=== PATIENT | male | born 1985 | race Caucasian/White ===

== ENCOUNTER 2023-08-19 15:39 | Observation (INO) | payer MEDICARE, MEDICAID, SELFPAY ==
[2023-08-19] VITALS (10 sets, daily range): BP systolic 110–158; BP diastolic 61–101; PULSE 67–100; RESP 14–18; TEMP 36.4–37.5; O2SAT 94–97; BMI 28.0; BMI 28.2
[2023-08-19] MEDS: Lactated Ringers 1,000 ML 15 ML IV (12:35)
--- NOTE | 2023-08-19 12:44 | EKG12_ITS ---
Test Reason : PRE OP Blood Pressure : / mmHG Vent. Rate : 084 BPM Atrial Rate : 084 BPM P-R Int : 156 ms QRS Dur : 098 ms QT Int : 382 ms P-R-T Axes : 035 039 -03 degrees QTc Int : 451 ms Normal sinus rhythm Inferior infarct , age undetermined Abnormal ECG No previous ECGs available Confirmed by MALCOLM SOTO, SMOOTH ([id number]), film editor supervisor LUCITA PARRA ([id number]) on 08/21/2023 9:15:32 AM Referred By: Virgil Barrientos Confirmed By:SMOOTH FOWLER MD
--- NOTE | 2023-08-19 14:00 | PROS_PTH ---
PATIENT: JACKIE ARRINGTON LOC: MS3 U#:[id number] AGE/SX: 37/M ROOM: [facility] [place] RE08/19/[address]: Dr. Virgil Barrientos MD : [id number] BED: 1 DIS: 08/20/2023 SPEC #: [id number] RECD: 08/19/23 18:33 STATUS: SABRINA VERA #: [id number] WENDI: 08/19/23 14:[address]: Virgil Barrientos DEPT: SURGICAL PATHOLOGY RECD BY: Janie Danielson ENTERED: 08/20/23 10:52 SP TYPE: TURP OTHR DR: Dr. Leonard Arechiga MD Tissues: Prostate, NOS Procedures: Surgery Specimen Level IV HEADER OPERATION: Transurethral resection of prostate with Olympus PRE-OP DIAGNOSIS: Urinary obstruction, incomplete bladder emptying TISSUE SUBMITTED: Prostate tissue MICROSCOPIC DIAGNOSIS Prostate, transurethral resection: Benign nodular hyperplasia. AM:megan 08/21/2023 MICROSCOPIC DESCRIPTION Slides are reviewed. GROSS DESCRIPTION Received is one container labeled with the patient's name and designated prostate tissue. The specimen consists of multiple irregular fragments of pink-dominguez, rubbery, soft tissue that in aggregate weigh 3.4 gm and measure in aggregate 5.0 x 5.0 x 0.2 cm. The entire specimen is submitted in three cassettes. / AM:megan 08/20/2023 TC:5 CPT: 46943
[2023-08-19] MEDS: Cefazolin 2 GM in 0.9% Normal Saline (100mL Bag) 100 ML IV (15:27)
--- NOTE | 2023-08-19 16:05 | HP.PCM_ITS ---
HPI - General General Date of Service: 08/19/23 HPI Narrative JACKIE ARRINGTON, is a 37 M who presents for a TURP he has a bladder neck obstruction and probably voiding dysfunction PENDING SALE TO [facility] Medical History Abrasion Cardiology follow-up encounter Cognitive developmental delay Gastric reflux Hypertension Non-smoker Prostate disease Shortness of breath on exertion Tourettes syndrome Judson syndrome Home Medications amlodipine 10 mg tablet 10 mg PO BID 08/17/23 [History Last Taken Unknown] clonidine HCl 0.1 mg tablet 0.1 mg PO BID 08/17/23 [History Last Taken Unknown] labetalol 200 mg tablet 200 mg PO BID 08/17/23 [History Last Taken Unknown] omeprazole 40 mg capsule,delayed release 40 mg PO QHS 08/17/23 [History Last Taken Unknown] polydextrose 2.5 gram-vitamin B complex chewable tablet (Fiber Gummies (with B- complex)) 2 tab PO DAILY 08/17/23 [History Last Taken Unknown] senna-docusate sodium capsule 1 cap PO QHS 08/17/23 [History Last Taken Unknown] sennosides 8.6 mg tablet (senna) 17.2 mg PO DAILY 08/17/23 [History Last Taken Unknown] ciprofloxacin HCl 500 mg tablet (Cipro) 500 mg PO BID #10 tabs 08/19/23 [Rx Last Taken Unknown] tamsulosin 0.4 mg capsule 0.4 mg PO BID 30 days #60 caps 08/19/23 [Rx Last Taken Unknown] Allergy/AdvReac Type Severity Reaction Status Date / Time vancomycin Allergy Intermediate Rash Verified 08/17/23 10:13 Surgical History History of ERCP History of Jason fundoplication Hx of cholecystectomy Hx of laparoscopy Social History Smoking Status: Never smoker Vital Signs Vital Signs Vital Signs: 08/19/23 12:35 08/19/23 12:35 Temperature 99.5 F H Temperature Source Temporal Pulse Rate 97 Respiratory Rate 18 Respiratory Pattern Normal Blood Pressure 149/87 H Blood Pressure Mean 107 Blood Pressure Source Monitor Blood Pressure Position Sitting Blood Pressure Location Left Arm Pulse Ox 97 Oxygen Delivery Method Room Air Weight Weight: 69.5 kg Body Mass Index (BMI) 28.0
--- NOTE | 2023-08-19 16:06 | DCINST_ITS ---
Discharge Instructions Diet Discharge Diet: No restrictions Activity Discharge Activity: Return to Normal Activity and May Not Drive (while taking narcotic pain medications.) Dressing / Incision Call your doctor if you observe: Fever of 101 or Higher Follow Up Care Please Follow Up With: Virgil Barrientos MD When: Call [phone] for an appointment Test Results: Test results from this visit will be discussed in further detail at your follow- up appointment, if applicable. Discharge Plan Admission Primary Reason for Your Visit: turp Attending Provider: Virgil Barrientos Primary Care Provider: Leonard Arechiga Discharge Orders/Prescriptions Prescriptions: New ciprofloxacin HCl [Cipro] 500 mg tablet 500 mg PO BID Qty: 10 0RF tamsulosin 0.4 mg capsule 0.4 mg PO BID 30 Days Qty: 60 11RF Continued omeprazole 40 mg capsule,delayed release(DR/EC) 40 mg PO QHS Patient Comments: TAKE 1 CAPSULE BY MOUTH ONCE DAILY sennosides [senna] 8.6 mg tablet 17.2 mg PO DAILY Patient Comments: TAKE 2 TABLETS BY MOUTH TWICE DAILY senna-docusate sodium Capsule 1 cap PO QHS clonidine HCl 0.1 mg tablet 0.1 mg PO BID Patient Comments: TAKE 1 TABLET BY MOUTH THREE TIMES DAILY amlodipine 10 mg tablet 10 mg PO BID labetalol 200 mg tablet 200 mg PO BID Fiber Gummies (with B-complex) 2.5 gram tablet,chewable 2 tab PO DAILY Referrals / Follow Up: Virgil Barrientos MD [Med Staff - Active Staff] - Leonard Arehciga MD [Primary Care Provider] - Disposition Disposition (needs filled in before D/C Order can be placed): Home, Self Care
--- NOTE | 2023-08-19 16:06 | OP.PCM_ITS ---
Report of Operation Date of Procedure: 08/19/23 Pre-Operative Diagnosis: BPH with obstruction high bladder neck and voiding dys function Post-Operative Diagnosis: The same Surgery/Procedure Performed:: Transurethral resection of prostate Description of Surgical Findings:: Patient was taken back to the operating room at the smooth induction of anesthesia he was placed in dorsolithotomy position went into the bladder with a 21 [place] rigid cystoscope the entire length of the urethra was normal the sphincter was normal the prostate was normal once I got inside the prostate he had a very high riding bladder neck had a really deflected beak down to get over the bladder neck is quite high causing obstruction he does have a stretched out weekend looking 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 probably from his high bladder riding neck that was causing obstruction I then switched over to the 24 [place] noncontinuous flow Olympus bipolar resectoscope I resected the bladder neck down to the floor I then resected the right lobe of the prostate left lobe of the prostate resected back down the sphincter did a flow test had a nice good open flow sphincter was intact got all chips out was sent off as a specimen and then cauterized the channel hemostasis was obtained and then I placed a 22 [place] catheter and continuous irrigation we will keep an overnight for irrigation and we will do a voiding trial tomorrow we will send him home francisca rrow with Flomax and some antibiotics.
--- NOTE | 2023-08-19 16:46 | SUR.PHASEI ---
PATIENT CAME TO PACU WITH AIRWAY OBSTRUCTION. OXYGEN SATURATIONS IN THE 60'S-70'S WITH NASAL CANNULA AND SIMPLE MASK, WELL , JAW THRUST. NASAL AIRWAY INSERTED BY JUANJOSE ANDERSON. PATIENT TOLERATED WELL. OXYGEN SATURATIONS IMPROVED. NASAL AIRWAY REMOVED WITH NO PROBLEMS ONCE PATIENT AROUSED AND ANSWERED QUESTIONS APPROPRIATELY. MAINTAINED OXYGEN SATURATION WITH NASAL CANNULA AFTER NASAL AIRWAY REMOVED.
[2023-08-19] MEDS: Ciprofloxacin 400 MG/200 ML BAG 200 MG IV (21:23)
[2023-08-19] MEDS: Senna/Docusate Sodium 1 Tablet PO (21:23)
[2023-08-19] MEDS: Pantoprazole Sodium 40 MG Tablet PO (21:23)
[2023-08-19] MEDS: amLODIPine 10 MG Tablet PO (21:23)
[2023-08-19] MEDS: cloNIDine HCl 0.1 MG Tablet PO (21:23)
[2023-08-19] MEDS: Labetalol 200 MG Tablet PO (21:23)
[2023-08-19] MEDS: Docusate Sodium 100 MG Capsule 200 MG PO (21:23)
[2023-08-19] MEDS: 0.9% Normal Saline (1000mL) 1,000 ML 75 ML IV (21:28)
[2023-08-20 01:52] VITALS: BP 144/80; PULSE 97; RESP 16; TEMP 37.1; O2SAT 95
[2023-08-20 05:48] VITALS: BP 146/92; PULSE 99; RESP 16; TEMP 37.2; O2SAT 98
--- NOTE | 2023-08-20 07:25 | PCM.PN.GU ---
Subjective Subjective Status post TURP for high riding bladder neck. We can remove the catheter today and patient go home Objective Data Objective Data Vital Signs: Vital Signs Temp Pulse Resp BP Pulse Ox O2 Del Method O2 Flow Rate 98.9 F 99 16 146/92 H 98 Room Air 2 08/20/23 05:48 08/20/23 05:48 08/20/23 05:48 08/20/23 05:48 08/20/23 05:48 08/20/23 05:48 08/19/23 17:52 Oxygen Flow Rate (L/min) 2 Oxygen Delivery Method Room Air Weight: 69.5 kg Body Mass Index (BMI) 28.2 Intake & Output: Intake and Output for Last 24 Hours 08/18/23 08/19/23 08/20/23 23:59 23:59 23:59 Intake Total 406.25 / 406.25 Output Total 4800 / 4800 Balance -4393.75 / -4393.75
[2023-08-20 07:46] VITALS: O2SAT 95
[2023-08-20 08:08] VITALS: BP 160/95; PULSE 105; RESP 16; TEMP 37.3; O2SAT 95
--- NOTE | 2023-08-20 09:25 | CASEMGMT ---
Pt. has order in for discharge. RN CM in to pt. room to discuss needs at discharge. Pt' mother is also present at the bedside and speaks for pt. as pt. is MRDD. Pt's mother denies having any needs and denies needing any further help upon discharge home. Pt.'s mother denies having any further questions/concerns at this time.
--- NOTE | 2023-08-20 10:27 | PHA.DC_ITS ---
Pharmacy [place] Med Reconciliation Pharmacy Service has performed discharge medication reconciliation for this patient. Patient left prior to discharge counselling opportunity The patient's discharge medication list was reviewed for discrepancies and discrepancies were resolved. Medications at Discharge Home Medications amlodipine 10 mg tablet 10 mg PO BID 08/17/23 clonidine HCl 0.1 mg tablet 0.1 mg PO BID 08/17/23 labetalol 200 mg tablet 200 mg PO BID 08/17/23 omeprazole 40 mg capsule,delayed release 40 mg PO QHS 08/17/23 polydextrose 2.5 gram-vitamin B complex chewable tablet (Fiber Gummies (with B- complex)) 2 tab PO DAILY 08/17/23 senna-docusate sodium capsule 1 cap PO QHS 08/17/23 sennosides 8.6 mg tablet (senna) 17.2 mg PO DAILY 08/17/23 ciprofloxacin HCl 500 mg tablet (Cipro) 500 mg PO BID #10 tabs 08/19/23 tamsulosin 0.4 mg capsule 0.4 mg PO BID 30 days #60 caps 08/19/23
== END 2023-08-20 10:40 | disposition home or self-care (01) ==
LOC: SDC 16:30 → MS3 16:30
PROVIDERS: Admitting Provider Urology; PCP Family Medicine; Referring Provider Urology; Visit Provider Urology
PROC: (CPT 52601; principal; 2023-08-19 13:50)
DX: N40.1 Benign prostatic hyperplasia with lower urinary tract symptoms (principal); N13.8 Other obstructive and reflux uropathy; R39.14 Feeling of incomplete bladder emptying; I10 Essential (primary) hypertension; Z79.899 Other long term (current) drug therapy; R33.8 Other retention of urine; K21.9 Gastro-esophageal reflux disease without esophagitis; R06.02 Shortness of breath; F81.9 Developmental disorder of scholastic skills, unspecified; Q93.82 Williams syndrome; F95.2 Tourette's disorder
CPT/HCPCS: 52601; 00914; 88305; 93005; 96361; 96365; 99221; J7030; J7120; G0378; J0744; J2405

== ENCOUNTER → 2024-01-01 | Outpatient (CLI) | payer MEDICARE, MEDICAID, SELFPAY ==
--- NOTE | 2024-01-01 07:47 | RAD_ITS ---
STUDY: X-RAY - ESOPHAGUS (BARIUM SWALLOW) WITH FLUOROSCOPY REASON FOR EXAM: Male, 38 years old. DYSPHAGIA. History of prior Jaden fundoplication. TECHNIQUE: 20 view(s) of the esophagus were obtained following swallowing of barium. FLUOROSCOPY TIME (if supplied): (36 seconds) minutes/seconds COMPARISON: None. FINDINGS: There is no demonstrated esophageal foreign body. Postsurgical changes are seen at the gastroesophageal junction. Mild degree of gastroesophageal reflux. The patient ingested a 12 mm tablet of barium without any issue. Normal visualized aortic arch and descending thoracic aorta. Normal visualized pulmonary parenchyma. Normal visualized osseous structures of the thorax. RAD/Esophagus Dual Contrast IMPRESSION: Postoperative changes seen at the gastroesophageal junction with a mild residual gastroesophageal reflux. Electronically Signed: Christopher Lynn MD at 10:47 EDT ,
== END | disposition home or self-care (01) ==
PROVIDERS: PCP Family Medicine; Referring Provider Internal Medicine Gastroenterology; Visit Provider Internal Medicine Gastroenterology
DX: R13.10 Dysphagia, unspecified (principal)
CPT/HCPCS: 74221

== ENCOUNTER 2024-01-09 17:41 | Emergency (ER) | payer MEDICARE, MEDICAID, SELFPAY ==
[2024-01-09 17:44] VITALS: BP 148/92; PULSE 125; RESP 18; TEMP 36.9; O2SAT 95; BMI 26.9
--- NOTE | 2024-01-09 18:19 | CT_ITS ---
STUDY: CT Abdomen And Pelvis W/ Contrast Injection 01/09/2024 7:53 PM REASON FOR EXAM: Male, 38 years old. ABDOMINAL PAIN abdominal pain TECHNIQUE: Transaxial images were obtained without oral contrast, and with IV 100mL Isovue-370 intravenous contrast. Individualized dose optimization techniques were used for this CT. COMPARISON: None FINDINGS: The visualized lung bases are unremarkable. The visualized portions of the heart are within normal limits. There is intrahepatic ductal dilation. There is dilation of the common bile duct. A common bile duct stone is not seen. The CBD diameter is 8 mm. There are surgical clips in the gallbladder fossa consistent with a prior cholecystectomy. Unremarkable spleen. Unremarkable pancreas. Unremarkable bilateral adrenal glands. Non obstructive 2 mm right renal parenchymal stones. Non obstructive 2 mm left renal parenchymal stones. There are hypodensities in the right kidney. These are consistent for cysts. No follow up required. There is a PEG tube in place. Unremarkable small intestine. Unremarkable colon. There is non-visualization of the appendix. There is a hiatal hernia. There are no acute findings of the abdominal aorta. Unremarkable inferior vena cava. Subcentimeter mesenteric lymph nodes. Urinary bladder wall has wall thickening. This can be related to a partially contractile state. However, a cystitis is not excluded. Urinalysis should be performed in an effort to exclude cystitis. There are prostatic calcifications. Urinary bladder diverticula. Unremarkable abdominal wall. Unremarkable osseous structures. CT/Abdomen/Pelvis W IV Cont ONLY IMPRESSION: (NOT LISTED IN ORDER OF SIGNIFICANCE) Dilated CBD. Urinary bladder wall has wall thickening. This can be related to a partially contractile state. However, a cystitis is not excluded. Urinalysis should be performed in an effort to exclude cystitis. Other findings as above. Electronically Signed: Socrates Hernández MD at 20:07 EDT ,
[2024-01-09] MEDS: LORazepam 2 MG/ML Syringe 1 MG IV (18:32)
[2024-01-09 18:38] LABS: Absolute Lymphocyte Count 0.92 X10^3/uL (0.83-4.51); Absolute Neutrophil Count 3.5 X10^3/uL (2.0-7.7); Basophil# 0.04 X10^3/uL; Basophil% 0.8 % (0-1); Eosinophil# 0.14 X10^3/uL; Eosinophils% 2.7 % (0-5); Hematocrit 44.7 % (40-54); Hemoglobin 15.9 g/dL (13.0-16.5); Lymphocyte # 0.92 X10^3/ul (0.83-4.51); Lymphocyte % 17.8 % (19-41); Mean Corp Hgb Conc 35.6 g/dL (32-36); Mean Corpuscular Hgb 30.8 pg (27.0-32.0); Mean Corpuscular Volume 86.5 fL (80-94); Mean Platelet Vol. 10.1 fl (6.2-12.0); Monocyte# 0.53 X10^3/uL; Monocyte% 10.2 % (0-10); NRBC Flagged by Analyzer 0 % (0-5); Neutrophil # 3.53 X10^3/uL (2.7-7.7); Neutrophil % 68.1 % (47-70); Platelet Count 302 K/mm3 (150-450); RBC Distribution Width CV 12.1 % (11.6-14.6); RBC Distribution Width SD 38.3 fl (35.1-43.9); Red Blood Count 5.17 M/mm3 (4.6-6.2); White Blood Count 5.2 K/mm3 (4.4-11.0)
--- NOTE | 2024-01-09 18:51 | ED.VIS.GI ---
HPI HPI - GI History of Present Illness Chief Complaint: Abd Pain Informant: patient and parent Narrative Narrative: 38-year-old male presenting to the emergency room with abdominal pain. Patient has a feeding tube for venting the abdomen due to gas. Has a history of gastric volvulus GERD and bile duct obstruction. Reportedly had the bile duct obstruction stented at [facility] about 2 years ago. Mom states that since August he has lost about 60 pounds. She was decreased p.o. intake and she has been trying to supplement with boost through the PEG tube. He has an appointment in about a week and a half with Dr. Hathaway from gastroenterology. As a preworkup for that appointment he underwent a barium swallow. This was read as mild gastroesophageal reflux. Mom states that today the pain seemed worse and he was choking and vomiting with eating. No reported diarrhea. [facility] Medical History Abrasion Cardiology follow-up encounter Cognitive developmental delay Gastric reflux Gastric volvulus Hypertension Non-smoker Prostate disease Shortness of breath on exertion Tourettes syndrome Urinary (tract) obstruction Judson syndrome Home Medications amlodipine 10 mg tablet 10 mg PO BID 08/17/23 [History Last Taken Unknown] clonidine HCl 0.1 mg tablet 0.1 mg PO BID 08/17/23 [History Last Taken Unknown] labetalol 200 mg tablet 200 mg PO BID 08/17/23 [History Last Taken Unknown] omeprazole 40 mg capsule,delayed release 40 mg PO QHS 08/17/23 [History Last Taken Unknown] polydextrose 2.5 gram-vitamin B complex chewable tablet (Fiber Gummies (with B-complex)) 2 tab PO DAILY 08/17/23 [History Last Taken Unknown] senna-docusate sodium capsule 1 cap PO QHS 08/17/23 [History Last Taken Unknown] ciprofloxacin HCl 500 mg tablet (Cipro) 500 mg PO BID #10 tabs 08/19/23 [Rx Last Taken Unknown] tamsulosin 0.4 mg capsule 0.4 mg PO BID 30 days #60 caps 08/19/23 [Rx Last Taken Unknown] citalopram 20 mg tablet 20 mg PO DAILY 12/03/23 [History Last Taken Unknown] hyoscyamine sulfate 0.125 mg tablet 0.125 mg PO BID-QID PRN 12/03/23 [History Last Taken Unknown] ondansetron 4 mg disintegrating tablet 4 mg PO Q8H 12/03/23 [History Last Taken Unknown] oxycodone 5 mg capsule 5 mg PO Q6H PRN 12/03/23 [History Last Taken Unknown] paroxetine HCl 20 mg tablet 20 mg PO DAILY 12/03/23 [History Last Taken Unknown] lorazepam 1 mg tablet (Ativan) 1 mg PO BID PRN nausea and vomiting #10 tabs 01/09/24 [Rx Last Taken Unknown] Allergy/AdvReac Type Severity Reaction Status Date / Time vancomycin Allergy Intermediate Rash Verified 01/09/24 17:43 Surgical History Gastrostomy status History of ERCP History of Jason fundoplication Hx of cholecystectomy Hx of laparoscopy Social History Smoking Status: Never smoker ROS ROS ED Constitutional Constitutional ED: Reports weight loss; Denies chills or fever(s) Eyes Eyes: Denies change in vision or diplopia ENT ENT ED: Denies ear pain, rhinorrhea or sore throat Cardiovascular Cardiovascular: Denies chest pain, orthopnea, palpitations or racing heartbeat Respiratory/Chest Respiratory/Chest: Denies cough, dyspnea or orthopnea Gastrointestinal Gastrointestinal: Reports abdominal pain and vomiting; Denies diarrhea or nausea Genitourinary Genitourinary ED: Denies dysuria, hematuria or urinary frequency Musculoskeletal Musculoskeletal: Denies arthralgias or myalgias Integumentary Denies abscess or rash Neurologic Neurologic: Denies headache(s) or weakness Psychiatric Psychiatric: Denies anxiety, depression, suicidal ideation or suicidal thoughts Endocrine Endocrinology: Denies polydipsia, polyphagia or polyuria Allergic/Immunologic Allergic/Immunologic ED: Denies mouth swelling, tongue swelling or urticaria EXAM Physical Exam Narrative Exam Narrative: Adult male sitting on the bed with his legs crossed rocking back and forth Const Vital Signs: 01/09/24 17:44 01/09/24 19:41 01/09/24 21:00 Temperature 98.4 F Temperature Source Temporal Pulse Rate 125 H 101 H 105 H Respiratory Rate 18 18 18 Blood Pressure 148/92 H 189/99 H 201/108 H Blood Pressure Mean 110 129 139 Pulse Ox 95 95 94 Oxygen Delivery Method Room Air Room Air Room Air 01/09/24 23:00 01/09/24 23:12 Temperature 98.4 F 98.4 F Temperature Source Oral Pulse Rate 95 95 Respiratory Rate 18 18 Blood Pressure 181/90 H 181/62 H Blood Pressure Mean 120 101 Pulse Ox 95 95 Oxygen Delivery Method Room Air Positive well nourished and well developed General Appearance ED: well developed HEENT Reports normocephalic, head/scalp atraumatic and moist mucous membranes Eyes PERRL and EOMs intact bilaterally Neck no lymphadenopathy, supple and no JVD Resp normal respiratory effort and clear to auscultation bilaterally Cardio regular rate, regular rhythm and no murmurs Rate: tachycardic GI normal to inspection, nondistended, normoactive bowel sounds and non-tender GI Narrative: PEG tube without obvious complications Palpation: soft Back/Spine no CVA tenderness and normal ROM Extremity normal to inspection General Extremety ED: Negative for edema General Extremity: Negative for edema Neuro oriented x3 and CN's II-XII intact bilaterally Sensorium / Orientation: alert Motor Exam: strength 5/5 throughout Psych mental status grossly normal Mood & Affect: Negative for depressed or tearful Skin no rashes or lesions noted and no wounds MDM MDM MDM Narrative Medical decision making narrative: Blood work appears very normal except for glucose of 125 chloride of 109. Lipase is normal. CT abdomen pelvis was obtained. Please see radiology read. When I look at the images I see dilated common bile duct and intrahepatic ducts. Appears to be a scalloped edge questionable ascites on the cephalad component of the liver. I spoke with Dr. Scott. Reviewed the images together and we reviewed his history. A milligram of Ativan substantially helped the patient has been resting comfortably. He was able to eat some Cheerios and milk without difficulty states his abdomen is not hurting. He is on omeprazole. There is a wide differential for what could be causing the patient's symptoms and he certainly needs a workup whether or not that needs to be done in the hospital is difficult to say. 1 possibility is that he could be having a ball-valve effect with his weight loss in the feeding tube. I do not have access to a tube that I think would be appropriate for him right now based on Dr. Scott's recommendation. He will probably need an MRI upper endoscopy. I spoke with mom about admission. Elton is Saturday night noncommittal to get an MRI tomorrow and most likely not an endoscopy. I do not know how he would do in a change in environment waiting in the hospital for that long. Using shared decision making we spoke through different possibilities. I will write for him to have some Ativan at home which mom states really helped him out. He is going to continue his home medications and we gave him his doses of blood pressure medicines that he is due. Mom send call Dr. Scott's office on Thursday to arrange earlier follow-up. In the meantime if the patient is not able to tolerate food or is worsening he can return to the emergency department. History & Record Review Discussion w/independent historian: Patient and Family Lab Data Attestation: I reviewed the patient's lab results. Labs: Laboratory Results - last 24 hr 01/09/24 17:55 WBC 5.2 RBC 5.17 Hgb 15.9 Hct 44.7 MCV 86.5 MCH 30.8 MCHC 35.6 RDW Std Deviation 38.3 RDW Coeff of Elisabet 12.1 Plt Count 302 MPV 10.1 Immature Gran % (Auto) 0.400 Neut % (Auto) 68.1 Lymph % (Auto) 17.8 L [place] % (Auto) 10.2 H Eos % (Auto) 2.7 Baso % (Auto) 0.8 Absolute Neuts (auto) 3.5 Absolute Lymphs (auto) 0.92 Nucleated RBC % 0 Sodium 142 Potassium 3.9 Chloride 109 H Carbon Dioxide 25.0 Anion Gap 8 BUN 17 Creatinine 1.02 Estim Creat Clear Calc 81.78 Est GFR (MDRD) Af Amer 104 Est GFR (MDRD) Non-Af 86 BUN/Creatinine Ratio 16.7 Glucose 125 H Calcium 9.3 Total Bilirubin 0.30 Direct Bilirubin 0.10 AST 13 L ALT 24 Alkaline Phosphatase 104 Total Protein 8.0 Albumin 4.3 Globulin 3.7 Lipase 31 Radiography Diagnostic Testing: Clinical Impression(s) from Imaging Studies Abdomen/Pelvis CT 01/09/24 18:19 IMPRESSION: (NOT LISTED IN ORDER OF SIGNIFICANCE) Dilated CBD. Urinary bladder wall has wall thickening. This can be related to a partially contractile state. However, a cystitis is not excluded. Urinalysis should be performed in an effort to exclude cystitis. Other findings as above. Electronically Signed: Socrates Hernández MD at 20:07 EDT , Management Discussion w/another healthcare provider: Braille Teacher (MABEL Scott) Discharge Plan Triage Chief Complaint: Abd Pain ED Provider: Rusty Palmer Dx/Rx/DC Orders Clinical Impression: Abdominal pain Instructions: Abdominal Pain Prescriptions: New lorazepam [Ativan] 1 mg tablet 1 mg PO BID PRN (Reason: nausea and vomiting) Qty: 10 0RF No Action citalopram 20 mg tablet 20 mg PO DAILY ondansetron 4 mg tablet,disintegrating 4 mg PO Q8H oxycodone 5 mg capsule 5 mg PO Q6H PRN paroxetine HCl 20 mg tablet 20 mg PO DAILY hyoscyamine sulfate 0.125 mg tablet 0.125 mg PO BID-QID PRN omeprazole 40 mg capsule,delayed release(DR/EC) 40 mg PO QHS Patient Comments: TAKE 1 CAPSULE BY MOUTH ONCE DAILY senna-docusate sodium Capsule 1 cap PO QHS clonidine HCl 0.1 mg tablet 0.1 mg PO BID Patient Comments: TAKE 1 TABLET BY MOUTH THREE TIMES DAILY amlodipine 10 mg tablet 10 mg PO BID labetalol 200 mg tablet 200 mg PO BID Fiber Gummies (with B-complex) 2.5 gram tablet,chewable 2 tab PO DAILY ciprofloxacin HCl [Cipro] 500 mg tablet 500 mg PO BID Qty: 10 0RF tamsulosin 0.4 mg capsule 0.4 mg PO BID 30 Days Qty: 60 11RF Primary Care Provider: Leonard Arechiga Referrals: Bradford Scott DO [Med Staff - Active Staff] - As soon as possible Leonard Arechiga MD [Primary Care Provider] - Disposition Disposition: Home, Self Care Discharge Date/Time: 01/09/24 23:14
[2024-01-09 18:59] LABS: AST(SGOT) 13 U/L (15-37); Alanine Aminotransfer ALT/SGPT 24 U/L (16-61); Albumin, Serum 4.3 g/dL (3.2-5.0); Alkaline Phosphatase 104 U/L (45-117); Anion Gap 8 (5-15); BUN 17 mg/dL (7-18); BUN/Creat Ratio 16.7 RATIO (10-20); Calcium,Total 9.3 mg/dL (8.5-10.1); Chloride 109 mmol/L (98-107); Creatinine, Serum 1.02 mg/dL (0.70-1.30); EST Glomerular Filtration Rate 86 mL/min (>60); Est Glom Filt Rate - Afr Amer 104 mL/min (>60); Estimated Creatinine Clearance 81.78 ml/min; Globulin 3.7 g/dL (2.2-4.2); Glucose 125 mg/dL (74-106); Potassium 3.9 mmol/L (3.5-5.1); Sodium Level 142 mmol/L (136-145)
[2024-01-09 19:00] LABS: Lipase 31 U/L (13-75)
[2024-01-09 19:41] VITALS: BP 189/99; PULSE 101; RESP 18; O2SAT 95
[2024-01-09 21:00] VITALS: BP 201/108; PULSE 105; RESP 18; O2SAT 94
[2024-01-09] MEDS: amLODIPine 10 MG Tablet PO (21:50)
[2024-01-09] MEDS: Labetalol 200 MG Tablet PO (21:50)
[2024-01-09] MEDS: cloNIDine HCl 0.1 MG Tablet PO (21:50)
[2024-01-09 23:00] VITALS: BP 181/90; PULSE 95; RESP 18; TEMP 36.9; O2SAT 95
[2024-01-09 23:12] VITALS: BP 181/62; PULSE 95; RESP 18; TEMP 36.9; O2SAT 95
== END 2024-01-09 23:14 | disposition home or self-care (01) ==
PROVIDERS: Emergency Provider Emergency Medicine; PCP Family Medicine; Visit Provider Emergency Medicine
DX: R10.9 Unspecified abdominal pain (principal); Z93.1 Gastrostomy status; I10 Essential (primary) hypertension; Z79.899 Other long term (current) drug therapy; K21.9 Gastro-esophageal reflux disease without esophagitis; Z90.49 Acquired absence of other specified parts of digestive tract
CPT/HCPCS: 99283; 74177; 80048; 80076; 83690; 85025; Q9967; A4216

== ENCOUNTER 2024-01-10 19:54 | Inpatient (IN) | payer MEDICARE, MEDICAID, SELFPAY ==
[2024-01-10 19:55] VITALS: BP 136/85; PULSE 100; RESP 18; TEMP 36.8; O2SAT 97; BMI 26.8
[2024-01-10] MEDS: LORazepam 2 MG/ML Syringe 1 MG IV (21:08)
[2024-01-10] MEDS: 0.9% Normal Saline (1000mL) 1,000 ML 150 ML IV (21:08)
--- NOTE | 2024-01-10 21:17 | EDS_ITS ---
HPI HPI - GI History of Present Illness Chief Complaint: Abd Pain Informant: patient and parent Narrative Narrative: 38-year-old male seen in the emergency room last night by myself with abdominal pain. Patient has a history of Judson syndrome. He has had prior common bile duct stenting at [facility]. He has a PEG tube. Patient underwent labs and CT scanning in the emergency department last night. Noted abnormal contour of the liver with dilated intrahepatic and common bile ducts. Possible ball-valve effect of the feeding tube. Had outpatient's barium swallow that showed mild GE junction reflux. Case was discussed last night with gastroenterology and using shared decision making decided to pursue a expedited outpatient workup however the patient had continued pain today with eating. No fever or diarrhea. We have given the patient some Ativan last night which seemed to help him relax to make him feel better. Mom gave some of this today without success. Mom presenting him to the emergency department tonight for admission for inpatient workup due to his inability to tolerate food and his persistent weight loss. [facility] Medical History Abrasion Cardiology follow-up encounter Cognitive developmental delay Gastric reflux Gastric volvulus Hypertension Non-smoker Prostate disease Shortness of breath on exertion Tourettes syndrome Urinary (tract) obstruction Judson syndrome Home Medications amlodipine 10 mg tablet 10 mg PO BID 08/17/23 [History Last Taken Unknown] clonidine HCl 0.1 mg tablet 0.1 mg PO BID 08/17/23 [History Last Taken Unknown] labetalol 200 mg tablet 200 mg PO BID 08/17/23 [History Last Taken Unknown] omeprazole 40 mg capsule,delayed release 40 mg PO QHS 08/17/23 [History Last Taken Unknown] polydextrose 2.5 gram-vitamin B complex chewable tablet (Fiber Gummies (with B-complex)) 2 tab PO DAILY 08/17/23 [History Last Taken Unknown] senna-docusate sodium capsule 1 cap PO QHS 08/17/23 [History Last Taken Unknown] ciprofloxacin HCl 500 mg tablet (Cipro) 500 mg PO BID #10 tabs 08/19/23 [Rx Last Taken Unknown] tamsulosin 0.4 mg capsule 0.4 mg PO BID 30 days #60 caps 08/19/23 [Rx Last Taken Unknown] citalopram 20 mg tablet 20 mg PO DAILY 12/03/23 [History Last Taken Unknown] hyoscyamine sulfate 0.125 mg tablet 0.125 mg PO BID-QID PRN 12/03/23 [History Last Taken Unknown] ondansetron 4 mg disintegrating tablet 4 mg PO Q8H 12/03/23 [History Last Taken Unknown] oxycodone 5 mg capsule 5 mg PO Q6H PRN 12/03/23 [History Last Taken Unknown] paroxetine HCl 20 mg tablet 20 mg PO DAILY 12/03/23 [History Last Taken Unknown] lorazepam 1 mg tablet (Ativan) 1 mg PO BID PRN nausea and vomiting #10 tabs 01/09/24 [Rx Last Taken Unknown] Allergy/AdvReac Type Severity Reaction Status Date / Time vancomycin Allergy Intermediate Rash Verified 01/10/24 19:56 Surgical History Gastrostomy status History of ERCP History of Jason fundoplication Hx of cholecystectomy Hx of laparoscopy Social History Smoking Status: Never smoker ROS ROS ED Constitutional Constitutional ED: Reports weight loss; Denies chills or fever(s) Eyes Eyes: Denies change in vision or diplopia ENT ENT ED: Denies ear pain, rhinorrhea or sore throat Cardiovascular Cardiovascular: Denies chest pain, orthopnea, palpitations or racing heartbeat Respiratory/Chest Respiratory/Chest: Denies cough, dyspnea or orthopnea Gastrointestinal Gastrointestinal: Reports abdominal pain and vomiting; Denies diarrhea or nausea Genitourinary Genitourinary ED: Denies dysuria, hematuria or urinary frequency Musculoskeletal Musculoskeletal: Denies arthralgias or myalgias Integumentary Denies abscess or rash Neurologic Neurologic: Denies headache(s) or weakness Psychiatric Psychiatric: Denies anxiety, depression, suicidal ideation or suicidal thoughts Endocrine Endocrinology: Denies polydipsia, polyphagia or polyuria Allergic/Immunologic Allergic/Immunologic ED: Denies mouth swelling, tongue swelling or urticaria EXAM Physical Exam Const Vital Signs: 01/10/24 19:55 Temperature 98.2 F Temperature Source Temporal Pulse Rate 100 Respiratory Rate 18 Blood Pressure 136/85 H Blood Pressure Mean 102 Pulse Ox 97 Oxygen Delivery Method Room Air Positive well nourished and well developed General Appearance ED: well developed HEENT Reports normocephalic, head/scalp atraumatic and moist mucous membranes Eyes PERRL and EOMs intact bilaterally Neck no lymphadenopathy, supple and no JVD Resp normal respiratory effort and clear to auscultation bilaterally Cardio regular rate, regular rhythm and no murmurs GI normal to inspection, nondistended, normoactive bowel sounds and non-tender GI Narrative: PEG tube in place Palpation: soft Back/Spine no CVA tenderness and normal ROM Extremity normal to inspection General Extremety ED: Negative for edema General Extremity: Negative for edema Neuro CN's II-XII intact bilaterally Neuro Narrative: Patient alert sitting in the bed rocking back and forth consistent with his history. Mom states that in her opinion he is having pain in his abdomen Sensorium / Orientation: alert Motor Exam: strength 5/5 throughout Psych Mood & Affect: tearful Skin no rashes or lesions noted and no wounds MDM MDM MDM Narrative Medical decision making narrative: Basic blood work remains unchanged from yesterday. He received a dose of Ativan and some IV fluids. I will speak with the hospitalist regarding admission for GI evaluation tomorrow. History & Record Review Discussion w/independent historian: Patient and Family Additional record(s) reviewed:: Prior ED visit and Prior labs Lab Data Attestation: I reviewed the patient's lab results. Labs: Laboratory Results - last 24 hr 01/10/24 21:10 WBC 8.5 RBC 4.81 Hgb 14.7 Hct 41.6 MCV 86.5 MCH 30.6 MCHC 35.3 RDW Std Deviation 38.3 RDW Coeff of Elisabet 12.0 Plt Count 267 MPV 9.4 Immature Gran % (Auto) 0.200 Neut % (Auto) 77.4 H Lymph % (Auto) 12.7 L [place] % (Auto) 7.3 Eos % (Auto) 1.8 Baso % (Auto) 0.6 Absolute Neuts (auto) 6.6 Absolute Lymphs (auto) 1.08 Nucleated RBC % 0 Sodium 141 Potassium 3.8 Chloride 107 Carbon Dioxide 28.0 Anion Gap 6 BUN 17 Creatinine 0.93 Estim Creat Clear Calc 89.52 Est GFR (MDRD) Af Amer 117 Est GFR (MDRD) Non-Af 97 BUN/Creatinine Ratio 18.4 Glucose 115 H Calcium 8.7 Total Bilirubin 0.40 Direct Bilirubin 0.12 AST 12 L ALT 22 Alkaline Phosphatase 81 Total Protein 7.0 Albumin 3.9 Globulin 3.1 Lipase 27 Discharge Plan Dx/Rx/DC Orders Clinical Impression: Mc syndrome, Abdominal pain Disposition Disposition: Acute Care Hospital [facility]
[2024-01-10 21:18] LABS: Absolute Lymphocyte Count 1.08 X10^3/uL (0.83-4.51); Absolute Neutrophil Count 6.6 X10^3/uL (2.0-7.7); Basophil# 0.05 X10^3/uL; Basophil% 0.6 % (0-1); Eosinophil# 0.15 X10^3/uL; Eosinophils% 1.8 % (0-5); Hematocrit 41.6 % (40-54); Hemoglobin 14.7 g/dL (13.0-16.5); Lymphocyte # 1.08 X10^3/ul (0.83-4.51); Lymphocyte % 12.7 % (19-41); Mean Corp Hgb Conc 35.3 g/dL (32-36); Mean Corpuscular Hgb 30.6 pg (27.0-32.0); Mean Corpuscular Volume 86.5 fL (80-94); Mean Platelet Vol. 9.4 fl (6.2-12.0); Monocyte# 0.62 X10^3/uL; Monocyte% 7.3 % (0-10); NRBC Flagged by Analyzer 0 % (0-5); Neutrophil % 77.4 % (47-70); Platelet Count 267 K/mm3 (150-450); RBC Distribution Width SD 38.3 fl (35.1-43.9); Red Blood Count 4.81 M/mm3 (4.6-6.2); White Blood Count 8.5 K/mm3 (4.4-11.0)
[2024-01-10 21:49] LABS: AST(SGOT) 12 U/L (15-37); Alanine Aminotransfer ALT/SGPT 22 U/L (16-61); Albumin, Serum 3.9 g/dL (3.2-5.0); Alkaline Phosphatase 81 U/L (45-117); Anion Gap 6 (5-15); BUN 17 mg/dL (7-18); BUN/Creat Ratio 18.4 RATIO (10-20); Bilirubin, Direct 0.12 mg/dL (0.00-0.30); Calcium,Total 8.7 mg/dL (8.5-10.1); Chloride 107 mmol/L (98-107); Creatinine, Serum 0.93 mg/dL (0.70-1.30); EST Glomerular Filtration Rate 97 mL/min (>60); Est Glom Filt Rate - Afr Amer 117 mL/min (>60); Estimated Creatinine Clearance 89.52 ml/min; Globulin 3.1 g/dL (2.2-4.2); Glucose 115 mg/dL (74-106); Lipase 27 U/L (13-75); Potassium 3.8 mmol/L (3.5-5.1); Sodium Level 141 mmol/L (136-145)
[2024-01-10 21:54] VITALS: BP 129/68; PULSE 99; RESP 14; RESP 18; TEMP 36.9; O2SAT 98
--- NOTE | 2024-01-10 22:36 | PCM.HP.STD ---
HPI - General General Date of Admission: 01/10/24 HPI Narrative JACKIE ARRINGTON, is a 38 M who presents to the hospital with his mother due to abdominal pain and poor p.o. intake, she says he is lost about 60 pounds in the last couple months. 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 Presented yesterday because of increased abdominal pain he was given a dose of Ativan which calmed his anxiety which allowed him to eat however today his pain recurred and he had very poor p.o. intake so she brought him back to the hospital. Initially there was going to be an attempt to do outpatient gastroenterology workup however given the recurrence of his symptoms we will proceed with an inpatient workup. [facility] Medical History Abrasion Cardiology follow-up encounter Cognitive developmental delay Gastric reflux Gastric volvulus Hypertension Non-smoker Prostate disease Shortness of breath on exertion Tourettes syndrome Urinary (tract) obstruction Judson syndrome Home Medications amlodipine 10 mg tablet 10 mg PO BID blood pressure 08/17/23 [History Last Taken Unknown] clonidine HCl 0.1 mg tablet 0.1 mg PO BID blood pressur 08/17/23 [History Last Taken Unknown] labetalol 200 mg tablet 200 mg PO BID blood pressure 08/17/23 [History Last Taken Unknown] omeprazole 40 mg capsule,delayed release 40 mg PO QHS acid reflux 08/17/23 [History Last Taken Unknown] tamsulosin 0.4 mg capsule 0.4 mg PO BID urine flow 30 days #60 caps 08/19/23 [Rx Last Taken Unknown] lorazepam 1 mg tablet (Ativan) 1 mg PO BID PRN nausea and vomiting #10 tabs 01/09/24 [Rx Last Taken Unknown] sennosides 8.6 mg tablet (senna) 17.2 mg PO BID stool softener 01/10/24 [History Last Taken Unknown] Allergy/AdvReac Type Severity Reaction Status Date / Time vancomycin Allergy Intermediate Rash Verified 01/10/24 19:56 Family History (Updated 01/10/24 @ 22:[address] Lincoln Whitmore MD) Other Heart disease Surgical History Gastrostomy status History of ERCP History of Jason fundoplication Hx of cholecystectomy Hx of laparoscopy Social History (Updated 01/10/24 @ 23:49 by Carrie Weinstein) household members: family housing: house Smoking Status: Never smoker ROS Constitutional Constitutional: Reports change in weight; Denies chills, fatigue, fever(s) or malaise Eyes Eyes: Denies blurry vision ENT HEENT: Denies headache(s) or nasal discharge Cardiovascular Cardiovascular: Denies chest pain, dyspnea on exertion or syncope Respiratory/Chest Respiratory/Chest: Denies cough, shortness of breath at rest or shortness of breath with exertion Gastrointestinal Gastrointestinal: Reports abdominal pain; Denies constipation, diarrhea, nausea or vomiting Genitourinary Genitourinary: Denies dysuria Neurologic Neurologic: Denies focal weakness, numbness or tremor(s) Psychiatric Psychiatric: Denies anxiety or depression Vital Signs Vital Signs Vital Signs: 01/10/24 19:55 Temperature 98.2 F Temperature Source Temporal Pulse Rate 100 Respiratory Rate 18 Blood Pressure 136/85 H Blood Pressure Mean 102 Pulse Ox 97 Oxygen Delivery Method Room Air Weight Weight: 146 lb 9 oz Body Mass Index (BMI) 26.8 Physical Exam Narrative General: Alert, developmentally delayed, Cooperative, No apparent distress HEENT: Atraumatic, PERRLA, EOMI, Normocephalic Oral: Moist Mucosa Neck: Supple, No JVD Lungs: Diminished, Normal air movement, No rhonchi, No wheeze, No rales Cardiovascular: Regular rate, Regular Rhythm, Normal S1, Normal S2, No murmurs Abdomen: Soft, Non Tender, Non-Distended, No Hepato-splenomegaly, PEG tube in place Extremities: No edema, Capillary Refill Less than 3 Seconds Skin: No rashes, No breakdown Musculoskeletal: No Tenderness to Palpation of Joints or Extremities Neurological: No focal neurological deficits, Motor Exam 5/5 strength throughout, Sensory exam intact to light touch and pain Psych/Mental Status: Normal Affect, Appropriate Results Lab / Micro Data 01/11/24 05:50 01/11/24 05:50 Labs: Laboratory Results - last 24 hr 01/10/24 21:10: WBC 8.5, RBC 4.81, Hgb 14.7, Hct 41.6, MCV 86.5, MCH 30.6, MCHC 35.3, RDW Std Deviation 38.3, RDW Coeff of Elisabet 12.0, Plt Count 267, MPV 9.4, Immature Gran % (Auto) 0.200, Neut % (Auto) 77.4 H, Lymph % (Auto) 12.7 L, [place] % (Auto) 7.3, Eos % (Auto) 1.8, Baso % (Auto) 0.6, Absolute Neuts (auto) 6.6, Absolute Lymphs (auto) 1.08, Nucleated RBC % 0, Sodium 141, Potassium 3.8, Chloride 107, Carbon Dioxide 28.0, Anion Gap 6, BUN 17, Creatinine 0.93, Estim Creat Clear Calc 89.52, Est GFR (MDRD) Af Amer 117, Est GFR (MDRD) Non-Af 97, BUN/Creatinine Ratio 18.4, Glucose 115 H, Calcium 8.7, Total Bilirubin 0.40, Direct Bilirubin 0.12, AST 12 L, ALT 22, Alkaline Phosphatase 81, Total Protein 7.0, Albumin 3.9, Globulin 3.1, Lipase 27 Assessment & Plan Assessment/Plan (1) Mc syndrome: (2) Abdominal pain: PLAN: Plan 1. Abdominal pain in the setting of Judson syndrome with a history of gastric volvulus/GERD ? Will make n.p.o. ? IV fluids ? Will consult gastroenterology ? Can resume PPI when verified 2. Essential HTN ? Stable ? Can resume his home medications when verified ? Will monitor make adjustments as necessary 3. Anxiety/depression ? Stable ? Can resume his home medications when verified 4. BPH ? Stable ? Continue with Flomax when verified DVT: SCDs 75 minutes was spent on direct patient care, including documentation as well as chart review and collaboration with colleagues Charges/Coding Visit Charges Inpatient E&M: 53283 Init Hosp L3
[2024-01-10 23:40] VITALS: BMI 27.4
[2024-01-10 23:57] VITALS: BP 135/84; PULSE 91; RESP 22; TEMP 36.6; O2SAT 97
[2024-01-11] MEDS: 0.9% Normal Saline (1000mL) 1,000 ML 100 ML IV ×3 (00:32→22:30)
[2024-01-11 06:18] LABS: Absolute Lymphocyte Count 1.05 X10^3/uL (0.83-4.51); Basophil# 0.04 X10^3/uL; Basophil% 0.8 % (0-1); Eosinophil# 0.11 X10^3/uL; Eosinophils% 2.3 % (0-5); Hematocrit 39.4 % (40-54); Hemoglobin 13.9 g/dL (13.0-16.5); Lymphocyte # 1.05 X10^3/ul (0.83-4.51); Lymphocyte % 22.1 % (19-41); Mean Corp Hgb Conc 35.3 g/dL (32-36); Mean Corpuscular Hgb 30.5 pg (27.0-32.0); Mean Corpuscular Volume 86.6 fL (80-94); Mean Platelet Vol. 9.8 fl (6.2-12.0); Monocyte# 0.54 X10^3/uL; Monocyte% 11.4 % (0-10); NRBC Flagged by Analyzer 0 % (0-5); Neutrophil % 63.2 % (47-70); Platelet Count 232 K/mm3 (150-450); RBC Distribution Width CV 12.1 % (11.6-14.6); RBC Distribution Width SD 38.5 fl (35.1-43.9); Red Blood Count 4.55 M/mm3 (4.6-6.2); White Blood Count 4.8 K/mm3 (4.4-11.0)
[2024-01-11 06:44] LABS: ALB/GLOB Ratio 1.2 RATIO (0.9-2.4); AST(SGOT) 12 U/L (15-37); Alanine Aminotransfer ALT/SGPT 21 U/L (16-61); Albumin, Serum 3.6 g/dL (3.2-5.0); Alkaline Phosphatase 75 U/L (45-117); Anion Gap 4 (5-15); BUN 12 mg/dL (7-18); BUN/Creat Ratio 15.4 RATIO (10-20); Calcium,Total 8.3 mg/dL (8.5-10.1); Chloride 111 mmol/L (98-107); Creatinine, Serum 0.78 mg/dL (0.70-1.30); EST Glomerular Filtration Rate 117 mL/min (>60); Est Glom Filt Rate - Afr Amer 142 mL/min (>60); Estimated Creatinine Clearance 107.91 ml/min; Globulin 3.1 g/dL (2.2-4.2); Glucose 99 mg/dL (74-106); Potassium 3.5 mmol/L (3.5-5.1); Protein, Total 6.7 g/dL (6.4-8.2); Sodium Level 142 mmol/L (136-145)
[2024-01-11 07:33] VITALS: BP 174/92; PULSE 98; RESP 18; TEMP 36.4; O2SAT 96
[2024-01-11] MEDS: cloNIDine HCl 0.1 MG Tablet PO ×2 (07:55→20:20)
[2024-01-11] MEDS: LORazepam 1 MG Tablet PO (07:55)
[2024-01-11] MEDS: amLODIPine 10 MG Tablet PO ×2 (07:55→20:21)
[2024-01-11] MEDS: Tamsulosin HCl 0.4 MG Capsule PO ×2 (07:56→20:20)
[2024-01-11] MEDS: Labetalol 200 MG Tablet PO ×2 (07:56→20:21)
--- NOTE | 2024-01-11 10:50 | CASEMGMT ---
RN CM Face to Face with patient for initial transition planning/care coordination assessment. RN CM introduced self and role at [facility]. Patient lying in bed, alert, mother at bedside. Mother, Toshia, willing to participate in assessment and is able to answer all questions appropriately as patient has diagnosis of MRDD. Care providers, pharmacy, and demographics verified. PCP: [facility] Specialists: Floyd, urologist; Dr. Rouse, gas turbine powerplant mechanic helper; [facility]erred [facility] Prescription Benefit: yes Living Will/HPOA: yes, mother Toshia Valdez, legal guardian LNOK: mother Living Arrangements: Nelida lives with mother in a single story home with 1 step to enter. Patient is independent most of the time, mother assists when needed. Transportation: mother DME/HHC: Patient has grab bars. Patient has had HHC in the past. No previous SNF Mother wishes for patient to discharge home, denies need for home health at this time. Mother states she has no further needs or concerns at this time. CM to follow for discharge planning needs that may arise. Disposition Plan: Patient to discharge home with family support and follow-up plans in place. Regla LOPEZ, RN, CM
--- NOTE | 2024-01-11 13:32 | PCM.PN.HOSP ---
Reason for Visit Reason for Visit: Abdominal pain/poor p.o. intake Subjective Subjective Patient is a 38-year-old white male who presented to the emergency department [facility] on 01/10/2024 due to worsening abdominal pain and poor enteral intake. He has a history of Judson syndrome and is developmentally delayed due to this. 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 He presented to the emergency department on the due to increased abdominal pain and was given a dose of Ativan which calmed his anxiety and allowed him to eat some however his pain recurred and he had poor p.o. intake so he was brought back to the hospital. At that time there was a call to Dr. Scott to arrange more expedited outpatient gastroenterology workup however with his symptoms being so significant and his p.o. intake being so poor he was admitted to the hospital and placed on IV fluids, p.o. Ativan, and consultation to gastroenterology was placed. His vital signs and labs were unremarkable. A CT of the abdomen pelvis was done on the and this showed a dilated common bile duct as well as thickening of the bladder wall. Previous barium swallow was noted from 01/01/2024 and showed postoperative changes at the GE junction with mild residual GERD but was otherwise unremarkable and he is on outpatient PPI. He does have history of prior common bile duct stenting at in [place]. His mother reports that all of his feedings recently have been enteral. He has not used his PEG tube in about a year and a half. Given that we are unsure if he is able to tolerate any enteral feeds but definitely has not been tolerating oral feeds. Having normal flatus and bowel movements. No vomiting. It sounds as if he had an ERCP that was done about 2 years ago. Objective Data Objective Data Vital Signs: Vital Signs Temp Pulse Resp BP Pulse Ox O2 Del Method 97.6 F L 98 18 174/92 H 96 Room Air 01/11/24 07:33 01/11/24 07:33 01/11/24 07:33 01/11/24 07:33 01/11/24 07:33 01/11/24 07:33 Oxygen Delivery Method Room Air Weight: 68.1 kg Body Mass Index (BMI) 27.4 Intake & Output: Intake and Output for Last 24 Hours 01/09/24 01/10/24 01/11/24 23:59 23:59 23:59 Intake Total Balance Lab / Micro Data 01/11/24 05:50 01/11/24 05:50 Labs: Laboratory Results - last 24 hr 01/10/24 21:10: WBC 8.5, RBC 4.81, Hgb 14.7, Hct 41.6, MCV 86.5, MCH 30.6, MCHC 35.3, RDW Std Deviation 38.3, RDW Coeff of Elisabet 12.0, Plt Count 267, MPV 9.4, Immature Gran % (Auto) 0.200, Neut % (Auto) 77.4 H, Lymph % (Auto) 12.7 L, [place] % (Auto) 7.3, Eos % (Auto) 1.8, Baso % (Auto) 0.6, Absolute Neuts (auto) 6.6, Absolute Lymphs (auto) 1.08, Nucleated RBC % 0, Sodium 141, Potassium 3.8, Chloride 107, Carbon Dioxide 28.0, Anion Gap 6, BUN 17, Creatinine 0.93, Estim Creat Clear Calc 89.52, Est GFR (MDRD) Af Amer 117, Est GFR (MDRD) Non-Af 97, BUN/Creatinine Ratio 18.4, Glucose 115 H, Calcium 8.7, Total Bilirubin 0.40, Direct Bilirubin 0.12, AST 12 L, ALT 22, Alkaline Phosphatase 81, Total Protein 7.0, Albumin 3.9, Globulin 3.1, Lipase 27 01/11/24 05:50: WBC 4.8, RBC 4.55 L, Hgb 13.9, Hct 39.4 L, MCV 86.6, MCH 30.5, MCHC 35.3, RDW Std Deviation 38.5, RDW Coeff of Elisabet 12.1, Plt Count 232, MPV 9.8, Immature Gran % (Auto) 0.200, Neut % (Auto) 63.2, Lymph % (Auto) 22.1, [place] % (Auto) 11.4 H, Eos % (Auto) 2.3, Baso % (Auto) 0.8, Absolute Neuts (auto) 3.0, Absolute Lymphs (auto) 1.05, Nucleated RBC % 0, Sodium 142, Potassium 3.5, Chloride 111 H, Carbon Dioxide 27.0, Anion Gap 4 L, BUN 12, Creatinine 0.78, Estim Creat Clear Calc 107.91, Est GFR (MDRD) Af Amer 142, Est GFR (MDRD) Non-Af 117, BUN/Creatinine Ratio 15.4, Glucose 99, Calcium 8.3 L, Total Bilirubin 0.50, AST 12 L, ALT 21, Alkaline Phosphatase 75, Total Protein 6.7, Albumin 3.6, Globulin 3.1, Albumin/Globulin Ratio 1.2 Physical Exam Const alert, no apparent distress and average body habitus Constitutional Narrative: Middle-aged, white male, lying in right side-lying, follows commands and interacts some, mother at bedside, appears comfortable at this time HEENT head/scalp atraumatic and moist oral mucous membranes Head and Scalp: normocephalic Resp normal respiratory effort, no retractions, no use of accessory muscles and clear to auscultation bilaterally Auscultation: Negative for rales, rhonchi or wheezes Cardio regular rate, regular rhythm, S1 normal heart sound, S2 normal heart sound, no murmurs, no rub, no gallops and no clicks GI GI Narrative: Bowel sounds are hyperactive, abdomen is soft with no signs of tenderness with palpation, no distention noted Extremity no clubbing, cyanosis or edema Extremity Narrative: Pedal pulses are 2+ bilaterally Neuro moves all extremities and no focal motor deficits Neuro Narrative: Independent in bed mobility Psych Psych Narrative: Currently without any anxiety or agitation Assessment & Plan Assessment/Plan (1) Abdominal pain: (2) Common bile duct dilatation: (3) Bladder wall thickening: PLAN: Plan Abdominal pain/poor p.o. intake/weight loss -60 pound weight loss in last couple months -Not tolerating enteral feeding -History of common bile duct stent/previous gastric volvulus -Has PEG tube -N.p.o. but okay for ice chips -Continue PPI but changed to IV twice daily -GI consultation is pending Common bile duct dilation -Unfortunately do not think patient would tolerate MRCP -Liver function and bilirubin are normal -GI consultation is pending Bladder wall thickening -With abdominal pain we will check UA -Hold off on empiric antibiotics for now Severe malnutrition -N.p.o. for now -60 pound weight loss in the last several months -Dietitian consult -May need to add supplements once enteral feeds are allowed GERD -Continue PPI but transition to IV Protonix 40 mg twice daily History of BPH with obstruction -Continue home Flomax twice daily Hypertension -Continue home amlodipine -Continue home clonidine -Continue home labetalol Judson syndrome -Chronic Anxiety -This is much worse with ongoing abdominal pain -Does take lorazepam 1 mg twice daily at home as needed -Will transition to IV 1 mg every 6 hours as needed DVT prophylaxis -Start Lovenox 40 daily CODE STATUS -DNR CCA with no intubation per discussion with mother on admission Charges/Coding Visit Charges Inpatient E&M: 42637 Subs Hosp L2
[2024-01-11] MEDS: LORazepam 2 MG/ML Syringe 1 MG IV ×2 (13:44→18:18)
[2024-01-11 13:50] VITALS: BP 153/77; PULSE 86; RESP 16; TEMP 36.6; O2SAT 97
[2024-01-11 16:34] LABS: Bacteria 0 SEEN /hpf (None Seen); Mucous, Urine 0 SEEN /hpf (<or=2+); Squamous Epithelial Cells - UA 0 SEEN /hpf (0-5); White Blood Cells 0 SEEN /hpf (0-5)
[2024-01-11 16:37] LABS: Color, Urine Yellow (Yellow); Glucose, Dipstick Normal (Normal); Ketone-Dipstick 5 mg/dl (Negative); Leukocyte Esterase-Dipstick Negative /ul (Negative); Nitrite-Dipstick Negative (Negative); Occult Blood-Urine 10 /ul (Negative); Protein-Dipstick Negative (Negative); Specific Gravity, Urine 1.015 (1.002-1.030); Urine Bilirubin Dipstick Negative (Negative); Urine Clarity Clear (Clear); Urine Urobilinogen Normal (Normal); Urine pH 6.5 (5.0 - 8.0)
[2024-01-11 17:26] LABS: Red Blood Cells-Urine 0-5 SEEN /hpf (0-5)
--- NOTE | 2024-01-11 17:31 | EX.PCM.CON.G ---
HPI Consult Data Date of Consult: 01/11/24 HPI Narrative Reason for Consultation: Abdominal pain with nausea vomiting HPI Narrative: JACKIE ARRINGTON, is a 38 M who presents to the hospital with his mother due to abdominal pain and poor p.o. intake, she says he is lost about 60 pounds in the last couple months. 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 His PEG tube is for venting purposes only. It was initially put in after he underwent PTC due to inability to do an ERCP for choledocholithiasis and a biliary stricture and development of gastric volvulus. When they went to take the PEG tube out he developed another gastric volvulus along with abdominal pain and cramping. Therefore it was placed back in the stomach for bloating and nausea but he does eat. He presented on 01/09/2024 because of increased abdominal pain he was given a dose of Ativan which calmed his anxiety which allowed him to eat however today his pain recurred and he had very poor p.o. intake so she brought him back to the hospital. Initially there was going to be an attempt to do outpatient gastroenterology workup however given the recurrence of his symptoms we will proceed with an inpatient workup. He got a CT scan abdomen pelvis after his blood work was essentially normal: Findings : dilated CBD Urinary bladder wall has wall thickening. This can be related to a partially contractile state. However, a cystitis is not excluded. Urinalysis should be performed in an effort to exclude cystitis. [facility] Medical History Abrasion Cardiology follow-up encounter Cognitive developmental delay Gastric reflux Gastric volvulus Hypertension Non-smoker Prostate disease Shortness of breath on exertion Tourettes syndrome Urinary (tract) obstruction Judson syndrome Home Medications amlodipine 10 mg tablet 10 mg PO BID blood pressure 08/17/23 [History Last Taken Unknown] clonidine HCl 0.1 mg tablet 0.1 mg PO BID blood pressur 08/17/23 [History Last Taken Unknown] labetalol 200 mg tablet 200 mg PO BID blood pressure 08/17/23 [History Last Taken Unknown] omeprazole 40 mg capsule,delayed release 40 mg PO QHS acid reflux 08/17/23 [History Last Taken Unknown] tamsulosin 0.4 mg capsule 0.4 mg PO BID urine flow 30 days #60 caps 08/19/23 [Rx Last Taken Unknown] lorazepam 1 mg tablet (Ativan) 1 mg PO BID PRN nausea and vomiting #10 tabs 01/09/24 [Rx Last Taken Unknown] sennosides 8.6 mg tablet (senna) 17.2 mg PO BID stool softener 01/10/24 [History Last Taken Unknown] Allergy/AdvReac Type Severity Reaction Status Date / Time vancomycin Allergy Intermediate Rash Verified 01/10/24 19:56 Family History (Updated 01/10/24 @ 22:[address] Lincoln Whitmore MD) Other Heart disease Surgical History Gastrostomy status History of ERCP History of Jason fundoplication Hx of cholecystectomy Hx of laparoscopy Social History (Updated 01/10/24 @ 23:49 by Carrie Weinstein) household members: family housing: house Smoking Status: Never smoker ROS Constitutional Constitutional: Reports change in weight; Denies chills, fatigue, fever(s) or malaise Eyes Eyes: Denies blurry vision ENT HEENT: Denies headache(s) or nasal discharge Cardiovascular Cardiovascular: Denies chest pain, dyspnea on exertion or syncope Respiratory/Chest Respiratory/Chest: Denies cough, shortness of breath at rest or shortness of breath with exertion Gastrointestinal Gastrointestinal: Reports abdominal pain; Denies constipation, diarrhea, nausea or vomiting Genitourinary Genitourinary: Denies dysuria Neurologic Neurologic: Denies focal weakness, numbness or tremor(s) Psychiatric Psychiatric: Denies anxiety or depression Lab / Micro Data 01/11/24 05:50 01/11/24 05:50 Labs: Laboratory Results - last 24 hr 01/10/24 21:10: WBC 8.5, RBC 4.81, Hgb 14.7, Hct 41.6, MCV 86.5, MCH 30.6, MCHC 35.3, RDW Std Deviation 38.3, RDW Coeff of Elisabet 12.0, Plt Count 267, MPV 9.4, Immature Gran % (Auto) 0.200, Neut % (Auto) 77.4 H, Lymph % (Auto) 12.7 L, [place] % (Auto) 7.3, Eos % (Auto) 1.8, Baso % (Auto) 0.6, Absolute Neuts (auto) 6.6, Absolute Lymphs (auto) 1.08, Nucleated RBC % 0, Sodium 141, Potassium 3.8, Chloride 107, Carbon Dioxide 28.0, Anion Gap 6, BUN 17, Creatinine 0.93, Estim Creat Clear Calc 89.52, Est GFR (MDRD) Af Amer 117, Est GFR (MDRD) Non-Af 97, BUN/Creatinine Ratio 18.4, Glucose 115 H, Calcium 8.7, Total Bilirubin 0.40, Direct Bilirubin 0.12, AST 12 L, ALT 22, Alkaline Phosphatase 81, Total Protein 7.0, Albumin 3.9, Globulin 3.1, Lipase 27 01/11/24 05:50: WBC 4.8, RBC 4.55 L, Hgb 13.9, Hct 39.4 L, MCV 86.6, MCH 30.5, MCHC 35.3, RDW Std Deviation 38.5, RDW Coeff of Elisabet 12.1, Plt Count 232, MPV 9.8, Immature Gran % (Auto) 0.200, Neut % (Auto) 63.2, Lymph % (Auto) 22.1, [place] % (Auto) 11.4 H, Eos % (Auto) 2.3, Baso % (Auto) 0.8, Absolute Neuts (auto) 3.0, Absolute Lymphs (auto) 1.05, Nucleated RBC % 0, Sodium 142, Potassium 3.5, Chloride 111 H, Carbon Dioxide 27.0, Anion Gap 4 L, BUN 12, Creatinine 0.78, Estim Creat Clear Calc 107.91, Est GFR (MDRD) Af Amer 142, Est GFR (MDRD) Non-Af 117, BUN/Creatinine Ratio 15.4, Glucose 99, Calcium 8.3 L, Total Bilirubin 0.50, AST 12 L, ALT 21, Alkaline Phosphatase 75, Total Protein 6.7, Albumin 3.6, Globulin 3.1, Albumin/Globulin Ratio 1.2 01/11/24 16:20: Urine Color Yellow, Urine Clarity Clear, Urine pH 6.5, Ur Specific [place] 1.015, Urine Protein Negative, Urine Glucose (UA) Normal, Urine Ketones 5 H, Urine Occult Blood 10 H, Urine Nitrite Negative, Urine Bilirubin Negative, Urine Urobilinogen Normal, Ur Leukocyte Esterase Negative, Urine RBC 0-5 SEEN, Urine WBC 0 SEEN, Ur Squamous Epith Cells 0 SEEN, Urine Bacteria 0 SEEN, Urine Mucus 0 SEEN Assessment & Plan Assessment/Plan (1) Mc syndrome: (2) Abdominal pain: PLAN: Plan 38-year-old with history of multiple abdominal surgeries, hypertension, Judson syndrome who presents with progressive weight loss and abdominal pain Abdominal pain in the setting of Judson syndrome with a history of gastric volvulus/GERD ? Differential diagnosis does include mechanical induced gastroparesis secondary to PEG tube, pyloric stenosis as that is associated with Judson syndrome, choledocholithiasis, biliary stricture, peptic ulcer disease. ? He will undergo an upper endoscopy tomorrow and I will order an MRCP Charges/Coding Visit Charges Inpatient E&M: 29972 Init Hosp L3
--- NOTE | 2024-01-11 17:36 | MRI_ITS ---
STUDY: MR CHOLANGIOPANCREATOGRAPHY (MRCP) REASON FOR EXAM: Male, 38 years old. Suspected choledocholithiasis and dilated commo TECHNIQUE: Standard MRCP technique was utilized. COMPARISON: CT 01/09/2024 FINDINGS: Gall Bladder: Gall bladder is surgically absent. Cystic duct: Normal with no demonstrated fixed filling defect. Intrahepatic ducts: Mild intrahepatic biliary ductal dilatation. Common hepatic duct: Mild extrahepatic biliary ductal dilatation with the common hepatic measuring 12 mm in diameter. Common bile duct: Normal with no demonstrated fixed filling defect, dilation or stricture. Pancreatic duct: Normal with no demonstrated fixed filling defect, dilation or stricture. MRI/MRCP Abdomen without Contrast IMPRESSION: Mild biliary ductal dilatation after cholecystectomy. Electronically Signed: Andrés Hairston MD at 23:15 EDT ,
[2024-01-11] MEDS: Pantoprazole Sodium 40 MG in 0.9% Normal Saline (100mL MB+) 100 ML 330 MG IV (20:21)
[2024-01-11 20:50] VITALS: BP 160/89; PULSE 100; RESP 18; TEMP 36.7; O2SAT 97
[2024-01-12] VITALS (9 sets, daily range): BP systolic 101–168; BP diastolic 51–90; PULSE 86–98; RESP 16–18; TEMP 36.7–36.9; O2SAT 95–99; BMI 27.4
[2024-01-12] MEDS: LORazepam 2 MG/ML Syringe 1 MG IV ×2 (05:53→12:45)
[2024-01-12 07:47] LABS: Anion Gap 6 (5-15); BUN 11 mg/dL (7-18); BUN/Creat Ratio 13.1 RATIO (10-20); Calcium,Total 8.4 mg/dL (8.5-10.1); Chloride 111 mmol/L (98-107); Creatinine, Serum 0.84 mg/dL (0.70-1.30); EST Glomerular Filtration Rate 108 mL/min (>60); Est Glom Filt Rate - Afr Amer 130 mL/min (>60); Glucose 95 mg/dL (74-106); Potassium 3.5 mmol/L (3.5-5.1); Sodium Level 141 mmol/L (136-145)
[2024-01-12] MEDS: 0.9% Normal Saline (1000mL) 1,000 ML 100 ML IV ×2 (07:59→16:57)
[2024-01-12 08:21] LABS: Absolute Lymphocyte Count 0.92 X10^3/uL (0.83-4.51); Absolute Neutrophil Count 2.6 X10^3/uL (2.0-7.7); Basophil# 0.05 X10^3/uL; Basophil% 1.2 % (0-1); Eosinophil# 0.08 X10^3/uL; Hematocrit 39.8 % (40-54); Hemoglobin 13.9 g/dL (13.0-16.5); Lymphocyte # 0.92 X10^3/ul (0.83-4.51); Lymphocyte % 22.6 % (19-41); Mean Corp Hgb Conc 34.9 g/dL (32-36); Mean Corpuscular Hgb 30.3 pg (27.0-32.0); Mean Corpuscular Volume 86.9 fL (80-94); Mean Platelet Vol. 10.1 fl (6.2-12.0); Monocyte# 0.39 X10^3/uL; Monocyte% 9.6 % (0-10); NRBC Flagged by Analyzer 0 % (0-5); Neutrophil # 2.62 X10^3/uL (2.7-7.7); Neutrophil % 64.4 % (47-70); Platelet Count 245 K/mm3 (150-450); RBC Distribution Width SD 38.3 fl (35.1-43.9); Red Blood Count 4.58 M/mm3 (4.6-6.2); White Blood Count 4.1 K/mm3 (4.4-11.0)
[2024-01-12] MEDS: Tamsulosin HCl 0.4 MG Capsule PO ×2 (09:13→20:55)
[2024-01-12] MEDS: Labetalol 200 MG Tablet PO ×2 (09:13→20:58)
[2024-01-12] MEDS: cloNIDine HCl 0.1 MG Tablet PO ×2 (09:13→20:56)
[2024-01-12] MEDS: amLODIPine 10 MG Tablet PO ×2 (09:13→20:55)
[2024-01-12] MEDS: Pantoprazole Sodium 40 MG in 0.9% Normal Saline (100mL MB+) 100 ML 330 MG IV ×2 (09:13→20:54)
[2024-01-12] MEDS: 0.9% Saline Lock 10 ML Syringe IV (12:46)
--- NOTE | 2024-01-12 13:46 | PCM.PN.HOSP ---
Reason for Visit Reason for Visit: Abdominal pain/PE poor p.o. intake Subjective Subjective MRCP done yesterday and was unremarkable. EGD is pending for today. Patient still having intermittent abdominal pain and poor p.o. intake. Ativan does seem to help. Objective Data Objective Data Vital Signs: Vital Signs Temp Pulse Resp BP Pulse Ox O2 Del Method 98.3 F 98 16 145/88 H 99 Room Air 01/12/24 12:35 01/12/24 12:35 01/12/24 12:35 01/12/24 12:35 01/12/24 12:35 01/12/24 12:35 Oxygen Delivery Method Room Air Weight: 68.1 kg Body Mass Index (BMI) 27.4 Intake & Output: Intake and Output for Last 24 Hours 01/10/24 01/11/24 01/12/24 23:59 23:59 23:59 Intake Total 3081.67 / 3106.67 1165 / 1165 Output Total 400 / 400 650 / 650 Balance 2681.67 / 2706.67 515 / 515 Lab / Micro Data 01/12/24 06:45 01/12/24 06:45 Labs: Laboratory Results - last 24 hr 01/11/24 16:20: Urine Color Yellow, Urine Clarity Clear, Urine pH 6.5, Ur Specific [place] 1.015, Urine Protein Negative, Urine Glucose (UA) Normal, Urine Ketones 5 H, Urine Occult Blood 10 H, Urine Nitrite Negative, Urine Bilirubin Negative, Urine Urobilinogen Normal, Ur Leukocyte Esterase Negative, Urine RBC 0-5 SEEN, Urine WBC 0 SEEN, Ur Squamous Epith Cells 0 SEEN, Urine Bacteria 0 SEEN, Urine Mucus 0 SEEN 01/12/24 06:45: WBC 4.1 L, RBC 4.58 L, Hgb 13.9, Hct 39.8 L, MCV 86.9, MCH 30.3, MCHC 34.9, RDW Std Deviation 38.3, RDW Coeff of Elisabet 12.0, Plt Count 245, MPV 10.1, Immature Gran % (Auto) 0.200, Neut % (Auto) 64.4, Lymph % (Auto) 22.6, [place] % (Auto) 9.6, Eos % (Auto) 2.0, Baso % (Auto) 1.2 H, Absolute Neuts (auto) 2.6, Absolute Lymphs (auto) 0.92, Nucleated RBC % 0, Sodium 141, Potassium 3.5, Chloride 111 H, Carbon Dioxide 24.0, Anion Gap 6, BUN 11, Creatinine 0.84, Estim Creat Clear Calc 100.20, Est GFR (MDRD) Af Amer 130, Est GFR (MDRD) Non-Af 108, BUN/Creatinine Ratio 13.1, Glucose 95, Calcium 8.4 L Radiography Diagnostic Testing: Radiology Impression MRCP 01/11/24 17:36 IMPRESSION: Mild biliary ductal dilatation after cholecystectomy. Electronically Signed: Andrés Hairston MD at 23:15 EDT , Physical Exam Const alert, no apparent distress and average body habitus Constitutional Narrative: Middle-aged, white male, lying in right side-lying, follows commands and interacts some, mother at bedside, appears comfortable at this time but has been having intermittent issues with increased pain HEENT head/scalp atraumatic and moist oral mucous membranes Resp normal respiratory effort, no retractions, no use of accessory muscles and clear to auscultation bilaterally Auscultation: Negative for rales, rhonchi or wheezes Cardio regular rate, regular rhythm, S1 normal heart sound, S2 normal heart sound, no murmurs, no rub, no gallops and no clicks GI normal to inspection, nondistended, normoactive bowel sounds, soft to palpation and non-tender Extremity no clubbing, cyanosis or edema Extremity Narrative: Pedal pulses are 2+ bilaterally Neuro moves all extremities and no focal motor deficits Neuro Narrative: Independent in bed mobility, mother was ambulating him in the bermudez with minimal assistance Psych Psych Narrative: Currently appears calm Assessment & Plan Assessment/Plan (1) Abdominal pain: (2) Common bile duct dilatation: (3) Bladder wall thickening: PLAN: Plan Abdominal pain/poor p.o. intake/weight loss -60 pound weight loss in last couple months -Not tolerating enteral feeding -History of common bile duct stent/previous gastric volvulus -Has PEG tube -N.p.o. but okay for ice chips -Continue IV Protonix twice daily -Continue as needed Ativan as this does seem to help some -GI is following and plan is for EGD later today Common bile duct dilation -MRCP was unremarkable other than mild biliary dilation related to his previous cholecystectomy -Liver function and bilirubin remain within normal limits Bladder wall thickening -With abdominal pain we will check UA -Hold off on empiric antibiotics for now Severe malnutrition -N.p.o. for now -60 pound weight loss in the last several months -Dietitian following -Will add supplements once enteral feeds are able to be initiated GERD -Continue PPI but transition to IV Protonix 40 mg twice daily History of BPH with obstruction -Continue home Flomax twice daily Hypertension -Continue home amlodipine -Continue home clonidine -Continue home labetalol Judson syndrome -Chronic Anxiety -This is much worse with ongoing abdominal pain -Will transition to IV 1 mg every 6 hours as needed--> anxiety has been more elevated while he has been hospitalized DVT prophylaxis -Continue Lovenox 40 daily CODE STATUS -DNR CCA with no intubation per discussion with mother on admission Charges/Coding Visit Charges Inpatient E&M: 54132 Subs Hosp L2
[2024-01-12] MEDS: Lactated Ringers 1,000 ML 15 ML IV (13:54)
--- NOTE | 2024-01-12 15:39 | OP.EGD_ITS ---
Patient Name: Aleksandr Lopez Procedure Date: 01/12/2024 3:15 PM Date of : 1985 Age: 38 Procedure: Upper GI endoscopy Indications: Epigastric abdominal pain Providers: Bradford Scott DO Referring MD: Lincoln Whitmore Medicines: Monitored Anesthesia Care Patient Profile: This is a 38 year old male. Refer to note in patient chart for documentation of history and physical. Patient has symptoms of acute epigastric abdominal pain. Complications: No immediate complications. Procedure: Pre-Anesthesia Assessment: - Prior to the procedure, a History and Physical was performed, and patient medications and allergies were reviewed. The patient is competent. The risks and benefits of the procedure and the sedation options and risks were discussed with the patient. All questions were answered and informed consent was obtained. Patient identification and proposed procedure were verified by the physician in the pre-procedure area. Mental Status Examination: alert and oriented. Airway Examination: normal oropharyngeal airway and neck mobility. Respiratory Examination: clear to auscultation. CV Examination: normal. Prophylactic Antibiotics: The patient does not require prophylactic antibiotics. Prior Anticoagulants: The patient has taken no anticoagulant or antiplatelet agents. ASA Grade Assessment: II - A patient with mild systemic disease. After reviewing the risks and benefits, the patient was deemed in satisfactory condition to undergo the procedure. The anesthesia plan was to use monitored anesthesia care (MAC). Immediately prior to administration of medications, the patient was re-assessed for adequacy to receive sedatives. The heart rate, respiratory rate, oxygen saturations, blood pressure, adequacy of pulmonary ventilation, and response to care were monitored throughout the procedure. The physical status of the patient was re-assessed after the procedure. After obtaining informed consent, the endoscope was passed under direct vision. Throughout the procedure, the patient's blood pressure, pulse, and oxygen saturations were monitored continuously. The Endoscope was introduced through the mouth, and advanced to the second part of duodenum. The upper GI endoscopy was accomplished without difficulty. The patient tolerated the procedure well. Scope In: 3:23:17 PM Scope Out: 3:32:39 PM Total Procedure Duration Time 0 hours 9 minutes 22 seconds Findings: The examined esophagus was normal. There was evidence of an eroding gastrostomy tube present on the greater curvature of the stomach. This was characterized by edema, erosion, erythema, inflammation and ulceration. The PEG required removal because it was broken, was dislodged and was infected. The PEG was removed under endoscopic vision. Removal was easily accomplished. An externally removable 20 Fr Bard gastrostomy tube was lubricated. The replacement tube was placed using the existing gastrostomy port. The final position of the gastrostomy tube was confirmed by relook endoscopy, and skin marking noted to be 4 cm at the external bumper. The final tension and compression of the abdominal wall by the PEG tube and external bumper were checked and revealed that the PEG balloon was loose and lightly touching the stomach. The tube was capped, and the tube site was cleaned and dressed. A moderate extrinsic deformity was found in the second portion of the duodenum. Impression: - Normal esophagus. - Eroding gastrostomy tube present characterized by edema, erosion, erythema, inflammation and ulceration. - Duodenal deformity. - The PEG was removed because it was broken, was dislodged and was infected, and replaced with an externally removable PEG. - No specimens collected. Recommendation: - [facility]. - Resume previous diet. - Continue present medications. Procedure Code(s): --- Professional --- 30995, Esophagogastroduodenoscopy, flexible, transoral; with directed placement of percutaneous gastrostomy tube CPT copyright 2021 [employer]. All rights reserved. The codes documented in this report are preliminary and upon activity therapy specialist review may be revised to meet current compliance requirements. Bradford Scott DO 01/12/2024 3:39:13 PM This report has been signed electronically. Number of Addenda: 0 Note Initiated On: 01/12/2024 3:15 PM
--- NOTE | 2024-01-12 15:40 | OP.CCLET_ITS ---
01/12/2024 Leonard Arechiga Re : Upper GI endoscopy procedure for Aleksandr Arechiga This procedure was performed on Friday, January 12, 2024. My impressions and recommendations are as follows: Impressions : - Normal esophagus. - Eroding gastrostomy tube present characterized by edema, erosion, erythema, inflammation and ulceration. - Duodenal deformity. - The PEG was removed because it was broken, was dislodged and was infected, and replaced with an externally removable PEG. - No specimens collected. Recommendations : - [facility] to [facility]. - Resume previous diet. - Continue present medications. My findings are described in the full procedure note, which is enclosed. If I can be of further assistance, please feel free to contact me at . Sincerely, Bradford Scott, 01/12/2024 3:39:13 PM This report has been signed electronically.
--- NOTE | 2024-01-12 16:09 | CHAPLAIN ---
Type of Pastoral Visit ___ Initial Visit ___ Follow-up Visit ___ On-call Visit ___ General Patient Visit ___ Spiritual Assessment ___ Family Conference ___ Bereavement ___ Rapid Response ___ Code Blue ___ Other (describe below) Pastoral Care Referral From ___ Patient ___ Family ___ Nurse ___ Physician ___ [employer] ___ [place] ___ Other (describe below) Sacrament/Intervention ___ Active listening ___ Anointing ___ Worship ___ Bereavement ___ Communion ___ Mishel exploration ___ ___ Life review ___ Prayer ___ Reconciliation ___ Sacrament of Sick ___ Supportive presence ___ Wedding ___ Other (describe below) Pastoral Comments patient and bed were out of the room; left a calling card
[2024-01-12] MEDS: Mirtazapine 15 MG Tablet 7.5 MG PO (20:57)
[2024-01-12] MEDS: Metoclopramide 10 MG/2 ML Vial 2.5 MG IV (21:01)
[2024-01-13] MEDS: 0.9% Normal Saline (1000mL) 1,000 ML 100 ML IV (02:57)
[2024-01-13 05:50] VITALS: BP 150/88; PULSE 84; RESP 16; TEMP 36.5; O2SAT 100
[2024-01-13] MEDS: Metoclopramide 10 MG/2 ML Vial 2.5 MG IV ×2 (05:50→11:37)
[2024-01-13 08:35] VITALS: BP 151/83; PULSE 92; RESP 14; TEMP 36.8; O2SAT 96
[2024-01-13] MEDS: Tamsulosin HCl 0.4 MG Capsule PO (08:39)
[2024-01-13] MEDS: Labetalol 200 MG Tablet PO (08:39)
[2024-01-13] MEDS: amLODIPine 10 MG Tablet PO (08:39)
[2024-01-13] MEDS: Mirtazapine 15 MG Tablet 7.5 MG PO (08:39)
[2024-01-13] MEDS: cloNIDine HCl 0.1 MG Tablet PO (08:39)
[2024-01-13] MEDS: Pantoprazole Sodium 40 MG in 0.9% Normal Saline (100mL MB+) 100 ML 330 MG IV (08:43)
--- NOTE | 2024-01-13 11:06 | DS.PCM_ITS ---
Providers Date of Admission: 01/10/24 Date of Discharge: 01/13/24 Primary Care Physician: Dr. Leonard Arechiga MD Consultations 01/10/24 23:53 Consult: Gastroenterology Routine Consulting Provider: [facility] Reason for Consult: Ivon Syndrome with abdominal pain EMERGENT Consult: No MD Notified: Yes Date Notified: 01/11/24 Time Notified: 06:23 Method of Notification: Text Reason For Visit: IVON SYNDROME WITH ABDOMINAL PAIN AND Diagnosis Discharge Diagnosis (1) Abdominal pain: Status: Acute Code(s): R10.9 - Unspecified abdominal pain (2) Common bile duct dilatation: Status: Acute Code(s): K83.8 - Other specified diseases of biliary tract (3) Bladder wall thickening: Status: Acute Code(s): N32.89 - Other specified disorders of bladder Medications at Discharge Home Medications amlodipine 10 mg tablet 10 mg PO BID blood pressure 08/17/23 clonidine HCl 0.1 mg tablet 0.1 mg PO BID blood pressur 08/17/23 labetalol 200 mg tablet 200 mg PO BID blood pressure 08/17/23 omeprazole 40 mg capsule,delayed release 40 mg PO QHS acid reflux 08/17/23 tamsulosin 0.4 mg capsule 0.4 mg PO BID urine flow 30 days #60 caps 08/19/23 lorazepam 1 mg tablet (Ativan) 1 mg PO BID PRN nausea and vomiting #10 tabs 01/09/24 sennosides 8.6 mg tablet (senna) 17.2 mg PO BID stool softener 01/10/24 Hospital Course Procedures EGD and - (CT abdomen and pelvis/MRCP) Summary of Care Provided Minutes Spent on Discharge: 38 Hospital Course: Mr. Lopez is a 38-year-old white male who presented to the emergency department [facility] on 01/10/2024 due to worsening abdominal pain and poor enteral intake. 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 He presented to the emergency department on the due to increase d abdominal pain and was given a dose of Ativan which calmed his anxiety and allowed him to eat some however his pain recurred and he had poor p.o. intake so he was brought back to the hospital. At that time there was a call to Dr. Scott to arrange more expedited outpatient gastroenterology workup however with his symptoms being so significant and his p.o. intake being so poor he was admitted to the hospital and placed on IV fluids, p.o. Ativan, and consultation to gastroenterology was placed. His vital signs and labs were unremarkable. A CT of the abdomen pelvis was done on the and this showed a dilated common bile duct as well as thickening of the bladder wall. Previous barium swallow was noted from 01/01/2024 and showed postoperative changes at the GE junction with mild residual GERD but was otherwise unremarkable and he is on outpatient PPI. He does have history of prior common bile duct stenting at in [place]. He was admitted to the medical floor and placed on IV fluids, given as needed Ativan as this did help with his abdominal symptoms, and GI was consulted. With the dilation of the common bile duct noted on the CT of the abdomen and pelvis and MRCP was performed and demonstrated mild biliary duct dilation consistent with previous cholecystectomy but was otherwise unremarkable. He was then taken for EGD on 01/12/2024 at which time he was found to have an eroding gastrostomy tube at the greater curvature of the stomach that was characterized by edema, erosion, erythema, inflammation, and ulceration. The PEG was removed because it was broken and dislodged, this was done under endoscopic visualization and removal was easy. An externally removable 20 [place] gastrostomy tube was placed and the existing gastrostomy port in the final position was confirmed with endoscopy. The external bumper was placed and lightly touching the anterior abdomen with the PEG balloon loose and lightly touching the stomach. There is also moderate and strength deformity found in the second portion of the duodenum that was felt to be possibly related to some scar tissue from previous. The patient was taken back to the medical floor and started on a p.o. diet which she tolerated well. He had no more ongoing abdominal pain. Given his significant improvement we were able to discharge him home in stable condition on 01/13/2024. Outpatient GI follow-up was set up prior to discharge and is on his discharge paperwork. He is also been asked to follow-up with his primary care physician within the next 1 to 2 weeks for hospital follow-up. He will remain on his PPI at the time of discharge. Discharge diagnoses: Intractable abdominal pain secondary to eroding gastrostomy tube in the greater curvature of the stomach Mildly dilated common bile duct secondary to previous cholecystectomy Mild bladder wall thickening with negative UA Severe malnutrition GERD History of BPH with obstruction Hypertension Ivon syndrome Anxiety Physical Exam Const alert, no apparent distress and average body habitus Constitutional Narrative: Middle-aged, white male, sitting up in bed, watching television, appears comfortable, nontoxic, much more interactive and appears as if he is feeling much better, mother at bedside General Appearance: cooperative, comfortable, well kempt and well developed Orientation / Consciousness: awake and oriented to person Exam Limitations: other limitations HEENT normocephalic, head/scalp atraumatic, hearing grossly normal bilaterally and moist oral mucous membranes HEENT Narrative: Mallampati 2-3, no thrush Eyes PERRL, EOMs intact bilaterally and conjunctivae normal Eyes Narrative: No scleral icterus Neck no lymphadenopathy and supple Neck Narrative: Trachea midline, thyroid does not appear enlarged Resp normal respiratory effort, no retractions, no use of accessory muscles and clear to auscultation bilaterally Auscultation: Negative for rales, rhonchi or wheezes Cardio regular rate, regular rhythm, S1 normal heart sound, S2 normal heart sound, no murmurs, no rub, no gallops and no clicks GI normal to inspection, nondistended, normoactive bowel sounds, soft to palpation and non-tender GI Narrative: PEG tube in place Extremity no clubbing, cyanosis or edema Extremity Narrative: Pedal pulses are 2+ bilaterally Skin no rashes or lesions noted, no wounds, skin turgor normal and no jaundice Neuro CN's II-XII intact bilaterally, moves all extremities and no focal motor deficits Psych Psych Narrative: Much more interactive, appears if he is feeling much better Weight / BMI Weight Weight: 68.1 kg Body Mass Index (BMI) 27.4 ABG / Lab / Microbiology Data 01/12/24 06:45 01/12/24 06:45 D/C Instructions Discharge Diet: No restrictions Discharge Activity: Return to Normal Activity Meaningful Use Info Meaningful Use Meaningful Use Diagnoses (Choose all that apply): None applicable Ischemic Stroke Statin Dosing Therapy Reference: STATIN DOSE THERAPY REFERENCE: * Patients > 75 years receive moderate or high dose statin therapy. * Patients 75 years or YOUNGER should receive HIGH intensity statin dose unless contraindicated. You will be required to document reason for non-treatment if statin daily dose does not meet guidelines. HIGH DOSE STATIN THERAPY DAILY Atorvastatin > than or = to 40 mg Rosuvastatin > than or = to 20 mg Amlodipine + Atorvastatin > than or = to 2.5/40 mg Ezetimibe + Simvastatin 10/80 mg Simvastatin 80mg Discharge Plan Admission Admit Date/Time: 01/10/24 22:32 Primary Reason for Your Visit: Intractable abdominal pain Attending Provider: Leslie Schroeder Primary Care Provider: Leonard Arechiga Consulting Providers: Lincoln Whitmore Discharge Orders/Prescriptions Prescriptions: Continued omeprazole 40 mg capsule,delayed release(DR/EC) 40 mg PO QHS Patient Comments: TAKE 1 CAPSULE BY MOUTH ONCE DAILY clonidine HCl 0.1 mg tablet 0.1 mg PO BID Patient Comments: TAKE 1 TABLET BY MOUTH THREE TIMES DAILY amlodipine 10 mg tablet 10 mg PO BID labetalol 200 mg tablet 200 mg PO BID tamsulosin 0.4 mg capsule 0.4 mg PO BID 30 Days Qty: 60 11RF lorazepam [Ativan] 1 mg tablet 1 mg PO BID PRN (Reason: nausea and vomiting) Qty: 10 0RF sennosides [senna] 8.6 mg tablet 17.2 mg PO BID Referrals / Follow Up: Bradford Scott DO [Med Staff - Active Staff] - Leonard Arechiga MD [Primary Care Provider] - Within 2 Weeks (Call for hospital follow-up) Disposition Disposition (needs filled in before D/C Order can be placed): Home, Self Care Charges/Coding Visit Charges Inpatient E&M: 41444 Disch Hosp >30min
--- NOTE | 2024-01-13 11:32 | CASEMGMT ---
Addendum entered by Regla Thomas 01/13/24 12:10: MARIANA RAMIREZ updated by [employer] that they will follow patient as an outpatient and assist with supplementation setup. [facility] requested outpatient referral from DR. Scott's office. MARIANA RAMIREZ called Dr. Scott's office and left message requesting referral for outpatient nutritional services. Original Note: Patient has order for discharge. MARIANA RAMIREZ in to inquire about needs at discharge. Mother denies need for HHC or equipment. Mother voiced concern regarding Boost supplements not covered by insurance and inquired about script. MARIANA RAMIREZ updated mother that CM will see how soon patient can have follow up with MABEL, Dr Scott and reach out to Nutritional Services. MARIANA RAMIREZ called Dr. Scott's office to schedule follow-up, soonest appt is March 25 at 8:00am. MARIANA RAMIREZ requested patient be added to cancellation list. MARIANA RAMIREZ updated Dr. Scott's office regarding request for Boost supplement script and supporting documentation, nurse to request documentation from Dr. Scott. Office requesting script be sent to office for Dr. Scott to sign. MARIANA RAMIREZ updated Nutritional Services and requested recommendation for script. Nutritional services to see patient and mother prior to discharge. CM will continue to follow this patient and plan for a safe discharge.
--- NOTE | 2024-01-13 14:40 | CHAPLAIN ---
Type of Pastoral Visit _x__ Initial Visit ___ Follow-up Visit ___ On-call Visit ___ General Patient Visit ___ Spiritual Assessment ___ Family Conference ___ Bereavement ___ Rapid Response ___ Code Blue ___ Other (describe below) Pastoral Care Referral From ___ Patient _x__ Family ___ Nurse ___ Physician ___ Paperhanger And Painter ___ Dry Cleaning Manager ___ Other (describe below) Sacrament/Intervention _x__ Active listening ___ Anointing ___ Taoism ___ Bereavement ___ Communion ___ Mishel exploration ___ ___ Life review ___ Prayer ___ Reconciliation ___ Sacrament of Sick _x__ Supportive presence ___ Wedding ___ Other (describe below) Pastoral Comments patient and mother are in the room; pt is alert and sitting up in bed, rocking back and forth; pt is animated and expresses that he is good and going home; pt is unable to articulate fully which is normal in his condition; mother gives more details and states she is looking forward to having pt back at home in their routine and surroundings; no other needs are identified;
== END 2024-01-13 12:40 | disposition home or self-care (01) | DRG 393 ==
LOC: ED 22:02 → PCU 22:32
PROVIDERS: Internal Medicine Gastroenterology; Admitting Provider Family Medicine; Emergency Provider Emergency Medicine; PCP Family Medicine; Referring Provider Family Medicine; Visit Provider Internal Medicine
PROC: 0DJ08ZZ Inspection of Upper Intestinal Tract, Via Natural or Artificial Opening Endoscopic (ICD-10-PCS; CPT 43235; principal; 2024-01-12 14:40)
DX: K94.23 Gastrostomy malfunction (principal); E43 Unspecified severe protein-calorie malnutrition; Q93.82 Williams syndrome; K83.8 Other specified diseases of biliary tract; I10 Essential (primary) hypertension; K31.89 Other diseases of stomach and duodenum; K21.9 Gastro-esophageal reflux disease without esophagitis; F41.9 Anxiety disorder, unspecified; R62.50 Unspecified lack of expected normal physiological development in childhood; Z66 Do not resuscitate; N32.89 Other specified disorders of bladder; Z68.27 Body mass index [BMI] 27.0-27.9, adult; N40.0 Benign prostatic hyperplasia without lower urinary tract symptoms; Z90.49 Acquired absence of other specified parts of digestive tract
CPT/HCPCS: 36415; 74177; 74181; 80048; 80053; 80076; 81001; 83690; 85025; 96374; 97802; 97803; 99283; 99284; J7030; J7120; Q9967; A4216; J2405

== ENCOUNTER 2024-02-06 11:13 | Inpatient (IN) | payer MEDICARE, MEDICAID, SELFPAY ==
[2024-02-06] VITALS (7 sets, daily range): BP systolic 143–174; BP diastolic 70–97; PULSE 80–100; RESP 16–20; TEMP 36.1–36.9; O2SAT 96–100; BMI 24.5
--- NOTE | 2024-02-06 11:29 | EDS_ITS ---
HPI HPI - GI History of Present Illness Chief Complaint: Abd Pain Detail of Chief Complaint: Abdominal pain Informant: patient and parent Narrative Narrative: Patient presents with abdominal pain has been ongoing for greater than 4 weeks. Patient has history of Judson syndrome as well as Tourette's. He had a new PEG tube placed [address] Scott and has had some symptom improvement since that time. He has been losing weight over 70 pounds since July 2023. In the last 2 weeks he is lost 10 pounds. He had nausea. He complains of gurgling to his stomach. Denies fevers. No diarrhea. Patient has had prior appendectomy and cholecystectomy. [facility] Medical History Abrasion Cardiology follow-up encounter Cognitive developmental delay Gastric reflux Gastric volvulus Hypertension Non-smoker Prostate disease Shortness of breath on exertion Tourettes syndrome Urinary (tract) obstruction Judson syndrome Home Medications ?Medication ?Instructions ?Recorded ?Last Taken ?Type amlodipine 10 mg tablet 10 mg PO BID blood pressure 08/17/23 02/06/24 History clonidine HCl 0.1 mg tablet 0.1 mg PO BID blood pressur 08/17/23 02/06/24 History labetalol 200 mg tablet 200 mg PO BID blood pressure 08/17/23 02/06/24 History omeprazole 40 mg capsule,delayed 40 mg PO QHS acid reflux 08/17/23 Unknown History release tamsulosin 0.4 mg capsule 0.4 mg PO BID urine flow 30 days 08/19/23 02/06/24 Rx #60 caps sennosides 8.6 mg tablet (senna) 17.2 mg PO BID stool softener 01/10/24 02/06/24 History Allergy/AdvReac Type Severity Reaction Status Date / Time vancomycin Allergy Intermediate Rash Verified 02/06/24 11:14 Family History Other Heart disease Surgical History Gastrostomy status History of ERCP History of Jason fundoplication Hx of cholecystectomy Hx of laparoscopy Social History household members: family housing: house Smoking Status: Never smoker ROS ROS ED Review of Systems ROS Unobtainable: other Constitutional Constitutional ED: Reports lethargy; Denies chills, fever(s), sweats or weight loss Eyes Eyes: Denies blurry vision, change in vision or diplopia ENT ENT ED: Denies rhinorrhea or sore throat Cardiovascular Cardiovascular: Denies chest pain, orthopnea or racing heartbeat Respiratory/Chest Respiratory/Chest: Denies cough, dyspnea, dyspnea on exertion, orthopnea or sputum Gastrointestinal Gastrointestinal: Reports abdominal pain and nausea; Denies diarrhea or vomiting Genitourinary Genitourinary ED: Denies dysuria, hematuria or urinary frequency Musculoskeletal Musculoskeletal: Denies arthralgias, back pain, myalgias or neck pain Integumentary Denies abscess, Abrasions or rash Neurologic Neurologic: Denies headache(s) or weakness Psychiatric Psychiatric: Denies anxiety, depression or suicidal thoughts Endocrine Endocrinology: Denies polydipsia, polyphagia or polyuria Hematologic/Lymphatic Hematologic/Lymphatic: Denies easy bleeding, easy bruising or lymphadenopathy Allergic/Immunologic Allergic/Immunologic ED: Denies mouth swelling, tongue swelling or urticaria EXAM Physical Exam Const Vital Signs: 02/06/24 11:13 02/06/24 13:13 Temperature 97 F L Temperature Source Temporal Pulse Rate 97 87 Respiratory Rate 18 16 Blood Pressure 144/70 H 167/97 H Blood Pressure Mean 94 120 Pulse Ox 96 100 Oxygen Delivery Method Room Air Room Air Positive well nourished and well developed General Appearance ED: well developed and NAD HEENT Reports TM's clear and moist mucous membranes normocephalic and atraumatic; Negative for trauma or tenderness Tympanic Membrane ED: Yes TM's clear Eyes PERRL and EOMs intact bilaterally General Eye ED: Negative for pale conjunctiva or scleral icterus Neck no lymphadenopathy, supple and no JVD General: Negative for tenderness Chest Wall inspection of chest normal and palpation of chest normal Chest: Negative for tenderness Resp normal respiratory effort and clear to auscultation bilaterally Effort and Inspection: Negative for respiratory distress or pain with movement Auscultation: Negative for rhonchi, wheezes or diminished lung sounds Cardio regular rate, regular rhythm, S1 normal heart sound, S2 normal heart sound and no murmurs Peripheral Pulses: pulses 2+ throughout GI normal to inspection, nondistended, normoactive bowel sounds, soft to palpation, non-tender, non-distended and no masses GI Narrative: Feeding tube left upper abdomen. Hyperactive bowel sounds. Mild diffuse tenderness. No rebound, rigidity, or peritoneal signs. Back/Spine no CVA tenderness and no thoracic nor lumbar tenderness Extremity normal to inspection General Extremety ED: Negative for edema General Extremity: Negative for edema Neuro oriented x3, CN's II-XII intact bilaterally, no sensory deficits noted and gait normal Sensorium / Orientation: awake, alert, oriented to person, oriented to place and oriented to time Motor Exam: strength 5/5 throughout and strength abnormal Psych mental status grossly normal Skin no rashes or lesions noted and no wounds MDM MDM MDM Narrative Medical decision making narrative: Patient presents with abdominal pain is been ongoing for weeks. 1 month ago he had an MRCP that showed some mild intraductal dilatation but no stones or other abnormalities. Patient's not had any fever or vomiting. Clinically he looks well. IV line established. CBC with differential obtained showing a 6.2 with hemoglobin 15 and platelet count of 284. Chemistries unremarkable. LFTs were normal. Lactate normal at 1.4 and lipase normal at 27. Urinalysis was normal. CT scan of the abdomen and pelvis with IV and oral contrast given through PEG tube was obtained. Showed increasing intra hepatic and extrahepatic biliary ductal dilatation without obstructing stones. Patient also had some fullness of bilateral renal collecting systems worrisome for mild bilateral hydronephrosis with increased dilatation and bilateral renal pelvis but no hydroureter and no obstructing stones noted. Bladder wall was thickened. Patient also noted to have a prominent gastric hernia with gastrostomy tube in place. Discussed case with Dr. Scott who recommended maybe trying scheduled Bentyl and potentially Reglan. Discussed this with patient's mother who is concerned that he needs progressively getting worse and losing significant amounts of weight and not comfortable taking him home. Patient continuing to complain of pain and was given a second dose of morphine. This point discussed case with hospitalist to evaluate patient for admission. Lab Data Attestation: I reviewed the patient's lab results. Labs: Laboratory Results - last 24 hr 02/06/24 02/06/24 11:30 12:10 WBC 6.2 RBC 5.00 Hgb 15.3 Hct 43.2 MCV 86.4 MCH 30.6 MCHC 35.4 RDW Std Deviation 36.9 RDW Coeff of Elisabet 11.7 Plt Count 284 MPV 10.0 Immature Gran % (Auto) 0.300 Neut % (Auto) 75.6 H Lymph % (Auto) 15.0 L Power % (Auto) 7.0 Eos % (Auto) 1.6 Baso % (Auto) 0.5 Absolute Neuts (auto) 4.7 Absolute Lymphs (auto) 0.92 Nucleated RBC % 0 Sodium 141 Potassium 3.7 Chloride 106 Carbon Dioxide 29.0 Anion Gap 6 BUN 16 Creatinine 0.97 Est GFR (MDRD) Af Amer 111 Est GFR (MDRD) Non-Af 92 BUN/Creatinine Ratio 16.5 Glucose 110 H Lactic Acid 1.4 Calcium 9.3 Total Bilirubin 0.40 AST 16 ALT 26 Alkaline Phosphatase 84 Total Protein 7.5 Albumin 3.9 Globulin 3.6 Albumin/Globulin Ratio 1.1 Lipase 27 Urine Color Yellow Urine Clarity Clear Urine pH 6.5 Ur Specific [place] 1.010 Urine Protein 15 H Urine Glucose (UA) Normal Urine Ketones Negative Urine Occult Blood Negative Urine Nitrite Negative Urine Bilirubin Negative Urine Urobilinogen Normal Ur Leukocyte Esterase Negative Urine RBC 0 SEEN Urine WBC 0 SEEN Ur Squamous Epith Cells 0 SEEN Urine Bacteria 0 SEEN Urine Mucus 0 SEEN Radiography Diagnostic Testing: Clinical Impression(s) from Imaging Studies Abdomen/Pelvis CT 02/06/24 11:31 IMPRESSION: 1. Increasing intrahepatic and extrahepatic biliary ductal dilatation. No obstructing stones. ERCP will be very helpful for further evaluation. 2. Fullness of the bilateral renal collecting systems worrisome for mild bilateral hydronephrosis with increase dilatation of the bilateral renal pelvis but no hydroureter and no obstructing stones in the ureters and urinary bladder. No visible bladder mass but there is persistent thickening of the urinary bladder wall without obstruction of the bladder neck outlet or enlargement of the prostate gland. Cystoscopy will be very helpful for further evaluation. 3. Nonobstructing stones in both kidneys and smaller right kidney may be congenital. 4. 2.2 cm cyst behind the left urinary bladder wall and 1.3 x 1.1 cm cyst behind the right posterior urinary bladder wall. These are not dilated distal ureters. They may represent lymphoceles. These were present previously. 5. Prominent gastric hernia with gastrostomy tube in place. Electronically Signed: Steven Tran MD at 14:07 EDT , Discharge Plan Triage Chief Complaint: Abd Pain ED Provider: Laura Pope Dx/Rx/DC Orders Clinical Impression: Abdominal pain, Weight loss, Adult failure to thrive Prescriptions: No Action omeprazole 40 mg capsule,delayed release(DR/EC) 40 mg PO QHS Patient Comments: TAKE 1 CAPSULE BY MOUTH ONCE DAILY clonidine HCl 0.1 mg tablet 0.1 mg PO BID Patient Comments: TAKE 1 TABLET BY MOUTH THREE TIMES DAILY amlodipine 10 mg tablet 10 mg PO BID labetalol 200 mg tablet 200 mg PO BID tamsulosin 0.4 mg capsule 0.4 mg PO BID 30 Days Qty: 60 11RF sennosides [senna] 8.6 mg tablet 17.2 mg PO BID Primary Care Provider: Leonard Arechiga Referrals: Leonard Arechiga MD [Primary Care Provider] - Print Language: Zimbabwean Disposition Disposition: Acute Care [facility]
--- NOTE | 2024-02-06 11:31 | CT_ITS ---
EXAM: CT ABDOMEN AND PELVIS WITH INTRAVENOUS CONTRAST CLINICAL INDICATION: Abdominal pain. TECHNIQUE: Helically acquired images were obtained of the abdomen and pelvis with intravenous contrast. This CT exam was performed using one or more of the following dose reduction techniques: automated exposure control, adjustment of the mA and/or kV according to patient size, and/or use of iterative reconstruction technique. CONTRAST: Oral and amp; IV Gastrografin and amp; 100mL Isovue-370 RADIATION DOSE: CTDIvol = 8.91 mGy, DLP = 600.55 mGy-cm COMPARISON: CT abdomen and pelvis with IV contrast 01/09/2024. FINDINGS: LOWER THORAX: Unremarkable. Lung bases are clear. No cardiomegaly. No significant pericardial effusion. ABDOMEN: LIVER: Unremarkable. Homogeneous. No focal mass. GALLBLADDER AND BILE DUCTS: Increased intrahepatic biliary ductal dilatation and increase dilatation of the extrahepatic bile duct. Increase dilatation of the proximal common bile duct. No calcified gallstones. No gallbladder distention or wall edema. PANCREAS: Unremarkable. No focal cystic or solid mass. SPLEEN: Unremarkable. Normal size without focal cystic or solid mass. ADRENALS: Unremarkable. No nodules. KIDNEYS AND URETERS: Right renal atrophy with lobulation is unchanged. Mild compensatory hypertrophy of the left kidney. Nonobstructing stones in in the left renal infundibulum is unchanged. Nonobstructing stones in the right kidney are unchanged. Fullness of the right renal infundibula and mild dilatation of right renal pelvis may be mild right hydronephrosis. Increased dilatation of the left renal pelvis. STOMACH AND BOWEL: Contrast in small bowel loops. No stomach or bowel distention. No focal inflammatory change. PELVIS: APPENDIX: Nonvisualization of the appendix but no secondary signs of acute appendicitis. BLADDER: 2 x 2 cm cyst behind the left side of the urinary bladder wall and 1.3 x 1.1 cm cyst behind the right posterior urinary bladder wall. REPRODUCTIVE: Unremarkable as visualized. No mass. ABDOMEN and PELVIS: INTRAPERITONEAL SPACE: Unremarkable. No ascites or other fluid collection. No free air. BONES/JOINTS: Unremarkable. No suspicious lytic or blastic abnormality. SOFT TISSUES: Prominent gastric hernia. VASCULATURE: Unremarkable. Abdominal aorta is non-dilated. LYMPH NODES: Unremarkable. No enlarged lymph nodes. TUBES, LINES AND DEVICES: Gastrostomy tube is unchanged. CT/Abdomen/Pelvis WITH Contrast IMPRESSION: 1. Increasing intrahepatic and extrahepatic biliary ductal dilatation. No obstructing stones. ERCP will be very helpful for further evaluation. 2. Fullness of the bilateral renal collecting systems worrisome for mild bilateral hydronephrosis with increase dilatation of the bilateral renal pelvis but no hydroureter and no obstructing stones in the ureters and urinary bladder. No visible bladder mass but there is persistent thickening of the urinary bladder wall without obstruction of the bladder neck outlet or enlargement of the prostate gland. Cystoscopy will be very helpful for further evaluation. 3. Nonobstructing stones in both kidneys and smaller right kidney may be congenital. 4. 2.2 cm cyst behind the left urinary bladder wall and 1.3 x 1.1 cm cyst behind the right posterior urinary bladder wall. These are not dilated distal ureters. They may represent lymphoceles. These were present previously. 5. Prominent gastric hernia with gastrostomy tube in place. Electronically Signed: Steven Tran MD at 14:07 EDT ,
[2024-02-06] MEDS: Ondansetron 4 MG/2 ML Vial IV (11:39)
[2024-02-06] MEDS: Morphine 4 MG/ML Syringe IV ×2 (11:39→14:55)
[2024-02-06] MEDS: LORazepam 2 MG/ML Syringe 1 MG IV ×2 (11:39→15:05)
[2024-02-06 12:09] LABS: Absolute Lymphocyte Count 0.92 X10^3/uL (0.83-4.51); Absolute Neutrophil Count 4.7 X10^3/uL (2.0-7.7); Basophil# 0.03 X10^3/uL; Basophil% 0.5 % (0-1); Eosinophils% 1.6 % (0-5); Hematocrit 43.2 % (40-54); Hemoglobin 15.3 g/dL (13.0-16.5); Lymphocyte # 0.92 X10^3/ul (0.83-4.51); Mean Corp Hgb Conc 35.4 g/dL (32-36); Mean Corpuscular Hgb 30.6 pg (27.0-32.0); Mean Corpuscular Volume 86.4 fL (80-94); Monocyte# 0.43 X10^3/uL; NRBC Flagged by Analyzer 0 % (0-5); Neutrophil # 4.65 X10^3/uL (2.7-7.7); Neutrophil % 75.6 % (47-70); Platelet Count 284 K/mm3 (150-450); RBC Distribution Width CV 11.7 % (11.6-14.6); RBC Distribution Width SD 36.9 fl (35.1-43.9); White Blood Count 6.2 K/mm3 (4.4-11.0)
[2024-02-06] MEDS: 0.9% Normal Saline (1000mL) 1,000 ML 125 ML IV ×2 (12:15→22:44)
[2024-02-06 12:23] LABS: Bacteria 0 SEEN /hpf (None Seen); Mucous, Urine 0 SEEN /hpf (<or=2+); Red Blood Cells-Urine 0 SEEN /hpf (0-5); Squamous Epithelial Cells - UA 0 SEEN /hpf (0-5); White Blood Cells 0 SEEN /hpf (0-5)
[2024-02-06 12:25] LABS: ALB/GLOB Ratio 1.1 RATIO (0.9-2.4); AST(SGOT) 16 U/L (15-37); Alanine Aminotransfer ALT/SGPT 26 U/L (16-61); Albumin, Serum 3.9 g/dL (3.2-5.0); Alkaline Phosphatase 84 U/L (45-117); Anion Gap 6 (5-15); BUN 16 mg/dL (7-18); BUN/Creat Ratio 16.5 RATIO (10-20); Calcium,Total 9.3 mg/dL (8.5-10.1); Chloride 106 mmol/L (98-107); Creatinine, Serum 0.97 mg/dL (0.70-1.30); EST Glomerular Filtration Rate 92 mL/min (>60); Est Glom Filt Rate - Afr Amer 111 mL/min (>60); Globulin 3.6 g/dL (2.2-4.2); Glucose 110 mg/dL (74-106); Lipase 27 U/L (13-75); Potassium 3.7 mmol/L (3.5-5.1); Protein, Total 7.5 g/dL (6.4-8.2); Sodium Level 141 mmol/L (136-145)
[2024-02-06 12:32] LABS: Lactic Acid 1.4 mmol/L (0.4-1.9)
[2024-02-06 12:40] LABS: Color, Urine Yellow (Yellow); Glucose, Dipstick Normal (Normal); Ketone-Dipstick Negative (Negative); Leukocyte Esterase-Dipstick Negative /ul (Negative); Nitrite-Dipstick Negative (Negative); Occult Blood-Urine Negative /ul (Negative); Protein-Dipstick 15 mg/dl (Negative); Urine Bilirubin Dipstick Negative (Negative); Urine Clarity Clear (Clear); Urine Urobilinogen Normal (Normal); Urine pH 6.5 (5.0 - 8.0)
--- NOTE | 2024-02-06 14:58 | PCM.HP.STD ---
HPI - General General Date of Admission: 02/06/24 Date of Service: 02/06/24 Chief Complaint: Abdominal pain, poor oral intake, weight loss. HPI Narrative The patient is a 38 y/o M w/ PMHx: Judson Syndrome, Tourette's Syndrome who presents to the [facility] ED on 02/06/24 with history of PEG tube placed approximately 3 weeks prior per gastroenterology Dr. Scott with ongoing abdominal pain even prior to this starting 4 weeks prior with reported weight loss of 70 pounds since July 2023 and fortunately over the last 2 weeks reportedly a 10 pound loss with nausea without emesis and complains of gurgling in his stomach with no fevers or chills nor any diarrhea prompting ED evaluation. Mother notes that he has ongoing abdominal pain which initially improved after the GT change out but has recurred but he is now having it again, more frequent, causing him to not eat and only taking boost. From review of records patient has a history of previous gastric volvulus, GERD and bile duct obstruction with reported stent placement at [facility] approximately 2 years prior and has been following reportedly previous to this with Dr. Hathaway gastroenterology. 01/12/2024 with upper endoscopy with normal esophagus, eroding gastrostomy tube with noted edema, erosion and erythema with inflammation and ulceration, duodenal deformity, PEG tube removed at that time as it was dislodged and noted to be infected and replaced with an externally removable PEG. 01/09/2024 CT abdomen pelvis with urinary bladder wall thickening, dilated common bile duct. Upon evaluation in the ED difficult to ascertain the type of pain or if it is localized from the patient given his underlying mental delay. Workup in the ED included T97, heart rate 97, BP 144/70, respiratory rate 18, 96% on room air, CBC with WC 6.2, human 15.3, platelet 284 without shift, CMP with glucose 110 otherwise unremarkable, lactic acid 1.4, lipase 27, urinalysis unremarkable, CT abdomen and pelvis with increasing intrahepatic and extrapelvic biliary ductal dilatation with no obstructive stones, fullness of the bilateral renal collecting systems concerning for mild bilateral hydronephrosis with increased dilatation of bilateral renal pelvis ease but no hydroureter and no obstructing stone seen in the ureter or urinary bladder, no visible bladder mass but persistent thickening of the urinary bladder wall without any obstruction of the bladder neck outlet or enlargement the prostate, nonobstructing stones in both kidneys and smaller right kidney may be congenital, 2.2 cm cyst behind the left urinary bladder wall and 1.3 x 1.1 cm cyst on the right posterior urinary bladder wall, not dilated distal ureters possibly lymphoceles and noted to been present previously, prominent gastric hernia with gastrostomy tube in place. In the ED patient ministered maintenance IV fluids, Ativan 1 mg IV x 1, morphine 4 mg IV x 1 and Zofran 4 mg IV x 1. ED discussed case with Dr. Scott who recommended reglan and bentyl scheduled. [facility] Medical History Bladder wall thickening Common bile duct dilatation Cm syndrome Gastric volvulus Urinary (tract) obstruction Cognitive developmental delay Judson syndrome Abrasion Prostate disease Tourettes syndrome Gastric reflux Shortness of breath on exertion Non-smoker Cardiology follow-up encounter Hypertension Home Medications ?Medication ?Instructions ?Recorded ?Last Taken ?Type amlodipine 10 mg tablet 10 mg PO BID blood pressure 08/17/23 02/06/24 History clonidine HCl 0.1 mg tablet 0.1 mg PO BID blood pressur 08/17/23 02/06/24 History labetalol 200 mg tablet 200 mg PO BID blood pressure 08/17/23 02/06/24 History omeprazole 40 mg capsule,delayed 40 mg PO QHS acid reflux 08/17/23 Unknown History release tamsulosin 0.4 mg capsule 0.4 mg PO BID urine flow 30 days 08/19/23 02/06/24 Rx #60 caps sennosides 8.6 mg tablet (senna) 17.2 mg PO BID stool softener 01/10/24 02/06/24 History Allergy/AdvReac Type Severity Reaction Status Date / Time vancomycin Allergy Intermediate Rash Verified 02/06/24 11:14 Family History (Updated 02/06/24 @ 15:[address] Leatha Sanabria MD) Grandfather Heart disease Maternal grandfather. Grandmother Heart disease Maternal grandmother. Mother HLD (hyperlipidemia) Father No problems noted. Other Endometriosis other Surgical History Gastrostomy status History of Jason fundoplication Hx of laparoscopy History of ERCP Hx of cholecystectomy Social History (Updated 02/06/24 @ 14:[address] Leatha Sanabria MD) household members: family housing: house Smoking Status: Never smoker alcohol intake: never substance use type: does not use ROS Review of Systems ROS Unobtainable: due to mental condition Vital Signs Vital Signs Vital Signs: 02/06/24 11:13 02/06/24 13:13 02/06/24 14:54 Temperature 97 F L Temperature Source Temporal Pulse Rate 97 87 100 Respiratory Rate 18 16 20 H Blood Pressure 144/70 H 167/97 H 174/89 H Blood Pressure Mean 94 120 117 Pulse Ox 96 100 98 Oxygen Delivery Method Room Air Room Air Room Air Physical Exam Narrative Physical Examination: General: Awake, alert, answering some questions but difficult assessment given underlying volume syndrome and Tourette's, mother notes he is at baseline, follows commands, walking in the ED bed. Skin: Normal color, normal turgor, no icterus, no cyanosis except occasional staged ecchymoses, some mild skin irritation and redness but not erythema more from rubbing around the insertion of the G-tube. HEENT: AT/NC, EOMI, PERRLA, dry MM, no carotid bruits or JVD noted, chronic proptosis noted. Lungs: Mildly diminished, greater bases, mildly increased respiratory rate but no distress, no rales, ronchi or wheezing. Heart: Mildly tachycardic with regular rhythm; no gallop, rub audible. Abdomen: Soft, mildly hyperactive, mildly tympanitic but not extensively distended, no appreciated HSM, noted mild skin irritation likely from rubbing around the insertion of the G-tube which is very taut and pulled inward. Extremities: No cyanosis, clubbing, or edema. Neurological: Patient awake, alert, oriented as noted, cognitive function is baseline decreased with underlying mental delay currently appearing at his baseline, pupils equally reactive to light and accommodation, cranial nerves grossly normal but difficult assessment, moving all extremities, rocking in the bed, strength appears intact but difficult assessment. Psychiatric: Affect appears intermittently hyper, rocking in the bed, does have underlying anxiety and depression, underlying Tourette's syndrome. Results Lab / Micro Data 02/06/24 11:30 02/06/24 11:30 Labs: Laboratory Results - last 24 hr 02/06/24 11:30: WBC 6.2, RBC 5.00, Hgb 15.3, Hct 43.2, MCV 86.4, MCH 30.6, MCHC 35.4, RDW Std Deviation 36.9, RDW Coeff of Elisabet 11.7, Plt Count 284, MPV 10.0, Immature Gran % (Auto) 0.300, Neut % (Auto) 75.6 H, Lymph % (Auto) 15.0 L, Greer % (Auto) 7.0, Eos % (Auto) 1.6, Baso % (Auto) 0.5, Absolute Neuts (auto) 4.7, Absolute Lymphs (auto) 0.92, Nucleated RBC % 0, Sodium 141, Potassium 3.7, Chloride 106, Carbon Dioxide 29.0, Anion Gap 6, BUN 16, Creatinine 0.97, Est GFR (MDRD) Af Amer 111, Est GFR (MDRD) Non-Af 92, BUN/Creatinine Ratio 16.5, Glucose 110 H, Lactic Acid 1.4, Calcium 9.3, Total Bilirubin 0.40, AST 16, ALT 26, Alkaline Phosphatase 84, Total Protein 7.5, Albumin 3.9, Globulin 3.6, Albumin/Globulin Ratio 1.1, Lipase 27 02/06/24 12:10: Urine Color Yellow, Urine Clarity Clear, Urine pH 6.5, Ur Specific [place] 1.010, Urine Protein 15 H, Urine Glucose (UA) Normal, Urine Ketones Negative, Urine Occult Blood Negative, Urine Nitrite Negative, Urine Bilirubin Negative, Urine Urobilinogen Normal, Ur Leukocyte Esterase Negative, Urine RBC 0 SEEN, Urine WBC 0 SEEN, Ur Squamous Epith Cells 0 SEEN, Urine Bacteria 0 SEEN, Urine Mucus 0 SEEN Imaging Radiology Impression Abdomen/Pelvis CT 02/06/24 11:31 IMPRESSION: 1. Increasing intrahepatic and extrahepatic biliary ductal dilatation. No obstructing stones. ERCP will be very helpful for further evaluation. 2. Fullness of the bilateral renal collecting systems worrisome for mild bilateral hydronephrosis with increase dilatation of the bilateral renal pelvis but no hydroureter and no obstructing stones in the ureters and urinary bladder. No visible bladder mass but there is persistent thickening of the urinary bladder wall without obstruction of the bladder neck outlet or enlargement of the prostate gland. Cystoscopy will be very helpful for further evaluation. 3. Nonobstructing stones in both kidneys and smaller right kidney may be congenital. 4. 2.2 cm cyst behind the left urinary bladder wall and 1.3 x 1.1 cm cyst behind the right posterior urinary bladder wall. These are not dilated distal ureters. They may represent lymphoceles. These were present previously. 5. Prominent gastric hernia with gastrostomy tube in place. Electronically Signed: Steven Tran MD at 14:07 EDT , Assessment & Plan Assessment/Plan (1) Adult failure to thrive: PLAN: Plan The patient is a 38 y/o M w/ PMHx: Judson Syndrome, Tourette's Syndrome who presents to the [facility] ED on 02/06/24 with history of PEG tube placed approximately 3 weeks prior per gastroenterology Dr. Scott with ongoing abdominal pain even prior to this starting 4 weeks prior with reported weight loss of 70 pounds since July 2023 and fortunately over the last 2 weeks reportedly a 10 pound loss with nausea without emesis and complains of gurgling in his stomach with no fevers or chills nor any diarrhea prompting ED evaluation. Mother notes that he has ongoing abdominal pain which initially improved after the GT change out but has recurred but he is now having it again, more frequent, causing him to not eat and only taking boost. #1. Adult FTT secondary to underlying Persistent weight loss reported per Mother with concern for severe protein calorie malnutrition, recurrent intermittent abdominal pain, s/p recent GT change out: 01/12/2024 with upper endoscopy with normal esophagus, eroding gastrostomy tube with noted edema, erosion and erythema with inflammation and ulceration, duodenal deformity, PEG tube removed at that time as it was dislodged and noted to be infected and replaced with an externally removable PEG. Weight loss likely attributable to poor intake, will admit to medical surgical floor, will consult nutrition as patient likely at this point requires tube feeds as he is taking no oral supplemental feeds aside from boost being administered to him via PEG, will maintain on IV PPI given previous findings on upper endoscopy, will maintain per GI recommendation on scheduled Bentyl and Reglan, continue planned consultation with gastroenterology. Given findings on EGD will trial also sucaralfate but will review with GI and d/c if they prefer. Will have as needed oral and IV pain regimen given significant discomfort. PT/OT/ST consultations as well as case management for discharge planning. #2. Increasing intrahepatic and extrapelvic biliary ductal dilatation, Unclear etiology: CT A/P with no obstructive stones, 01/11/2024 MRCP secondary to suspected choledocholithiasis and dilated common bile duct at that time was obtained with mild biliary ductal dilatation status postcholecystectomy. CMP with no hyperbilirubinemia or transaminitis. Gastrology consulted as noted, continue to trend CMP. #3. Mild BL hydronephrosis with increased dilatation of bilateral renal pelvis, persistent thickening of the urinary bladder wall: CT A/P additionally despite these noted findings with no hydroureter and no obstructing stone seen in the ureter or urinary bladder, no visible bladder mass, no obstruction of the bladder neck outlet or enlargement the prostate, nonobstructing stones in both kidneys and smaller right kidney may be congenital, 2.2 cm cyst behind the left urinary bladder wall and 1.3 x 1.1 cm cyst on the right posterior urinary bladder wall, not dilated distal ureters possibly lymphoceles and noted to been present previously. Admission CMP with BUN/creatinine 16/0.97, GFR 92, most recent renal function previous to this BUN/creatinine 11/0.84, GFR 108 thus not markedly different, will continue to trend CMP, unclear significance. Will continue to monitor for any urinary obstructive symptoms, continue Flomax, if renal function worsens may need to consider inpatient consultation with urology. #4. 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 #5. Hypertension: Continue home regimen including amlodipine, clonidine, labetalol, PRN hydralazine. #6. BPH with history of urinary outlet obstructive pathology: We will continue patient on Flomax regimen. #7. GERD with history of gastric volvulus previously: Status post previous Jason and now gastrostomy, we will continue patient on PPI. #8. Anxiety and depression: Will continue low-dose Ativan regimen. #9. DVT prophylaxis: Lovenox. #10. CODE status: Patient mother is his legal guardian. Discussed CODE status at length including difference between FULL code, DNR-CCA and DNR-CC status with his mother. Following discussions about the differences in these status, requested DNR-CCA, no intubation, no aggressive measures. Advanced Care Planning Face to Face Time: 16 minutes. Charges/Coding Visit Charges Inpatient E&M: 59152 Init Hosp L2 Procedures Hospitalists Procedures: 78948 Advncd Care Plan 30 Min
--- NOTE | 2024-02-06 14:59 | ED.RN ---
FAMILY THINKS PT MAY NEED MORE ATIVAN. DR HOWE
[2024-02-06 15:54] LABS: Magnesium 2.3 mg/dL (1.6-2.6); Phosphorus 3.3 mg/dL (2.5-4.9)
[2024-02-06] MEDS: 0.9% Normal Saline (1000mL) 1,000 ML 100 ML IV (17:01)
[2024-02-06] MEDS: Metoclopramide 10 MG/2 ML Vial 5 MG IV ×2 (17:20→21:30)
[2024-02-06] MEDS: Pantoprazole Sodium 40 MG in 0.9% Normal Saline (100mL MB+) 100 ML 330 MG IV (17:20)
[2024-02-06] MEDS: amLODIPine 10 MG Tablet GT (18:04)
[2024-02-06] MEDS: cloNIDine HCl 0.1 MG Tablet GT ×2 (18:04→22:44)
[2024-02-06] MEDS: Labetalol 200 MG Tablet GT ×2 (18:04→22:43)
[2024-02-06] MEDS: BACITRACIN/POLYMYXIN B 15 GM Tube 1 APPLIC TOPICAL (21:30)
[2024-02-06] MEDS: Dicyclomine 10 MG Capsule 20 MG GT (22:43)
[2024-02-06] MEDS: Sucralfate 1 GM Tablet GT (22:44)
[2024-02-06] MEDS: Senna Tablet 2 TABLET GT (22:44)
[2024-02-06] MEDS: Tamsulosin HCl 0.4 MG Capsule PO (22:44)
[2024-02-06] MEDS: Pantoprazole Sodium 40 MG in 0.9% Normal Saline (100mL MB+) 100 ML 333 MG IV (22:49)
[2024-02-07 05:50] VITALS: BP 155/76; PULSE 86; RESP 16; TEMP 36.7; O2SAT 100
[2024-02-07] MEDS: Sucralfate 1 GM Tablet GT ×4 (05:52→21:03)
[2024-02-07] MEDS: Dicyclomine 10 MG Capsule 20 MG GT ×4 (05:52→21:02)
[2024-02-07] MEDS: BACITRACIN/POLYMYXIN B 15 GM Tube 1 APPLIC TOPICAL ×3 (05:53→21:00)
[2024-02-07] MEDS: Metoclopramide 10 MG/2 ML Vial 5 MG IV ×3 (05:54→21:02)
[2024-02-07 06:00] VITALS: BMI 24.5
[2024-02-07 06:24] LABS: Absolute Lymphocyte Count 1.04 X10^3/uL (0.83-4.51); Absolute Neutrophil Count 3.7 X10^3/uL (2.0-7.7); Basophil# 0.02 X10^3/uL; Basophil% 0.4 % (0-1); Eosinophils% 1.9 % (0-5); Hematocrit 39.7 % (40-54); Hemoglobin 13.7 g/dL (13.0-16.5); Lymphocyte # 1.04 X10^3/ul (0.83-4.51); Lymphocyte % 19.5 % (19-41); Mean Corp Hgb Conc 34.5 g/dL (32-36); Mean Corpuscular Hgb 29.8 pg (27.0-32.0); Mean Corpuscular Volume 86.3 fL (80-94); Monocyte# 0.45 X10^3/uL; Monocyte% 8.4 % (0-10); NRBC Flagged by Analyzer 0 % (0-5); Neutrophil % 69.2 % (47-70); Platelet Count 267 K/mm3 (150-450); RBC Distribution Width CV 11.7 % (11.6-14.6); RBC Distribution Width SD 36.4 fl (35.1-43.9); White Blood Count 5.3 K/mm3 (4.4-11.0)
--- NOTE | 2024-02-07 07:31 | PN.HOSP_ITS ---
Reason for Visit Reason for Visit: Diagnoses Adult failure to thrive (02/06/24) Objective Data Objective Data Vital Signs: Vital Signs Temp Pulse Resp BP Pulse Ox O2 Del Method 98.1 F 86 16 155/76 H 100 Room Air 02/07/24 05:50 02/07/24 05:50 02/07/24 05:50 02/07/24 05:50 02/07/24 05:50 02/07/24 05:50 Oxygen Delivery Method Room Air Weight: 143 lb 15.39 oz Body Mass Index (BMI) 24.5 Intake & Output: Intake and Output for Last 24 Hours 02/05/24 02/06/24 02/07/24 23:59 23:59 23:59 Intake Total 887.2 / 887.2 1000 / 1000 Output Total 725 / 725 400 / 400 Balance 162.2 / 162.2 600 / 600 Lab / Micro Data 02/07/24 05:44 02/07/24 05:44 Labs: Laboratory Results - last 24 hr 02/06/24 11:30: WBC 6.2, RBC 5.00, Hgb 15.3, Hct 43.2, MCV 86.4, MCH 30.6, MCHC 35.4, RDW Std Deviation 36.9, RDW Coeff of Elisabet 11.7, Plt Count 284, MPV 10.0, Immature Gran % (Auto) 0.300, Neut % (Auto) 75.6 H, Lymph % (Auto) 15.0 L, [place] % (Auto) 7.0, Eos % (Auto) 1.6, Baso % (Auto) 0.5, Absolute Neuts (auto) 4.7, Absolute Lymphs (auto) 0.92, Nucleated RBC % 0, Sodium 141, Potassium 3.7, Chloride 106, Carbon Dioxide 29.0, Anion Gap 6, BUN 16, Creatinine 0.97, Est GFR (MDRD) Af Amer 111, Est GFR (MDRD) Non-Af 92, BUN/Creatinine Ratio 16.5, Glucose 110 H, Lactic Acid 1.4, Calcium 9.3, Phosphorus 3.3, Magnesium 2.3, Total Bilirubin 0.40, AST 16, ALT 26, Alkaline Phosphatase 84, Total Protein 7.5, Albumin 3.9, Globulin 3.6, Albumin/Globulin Ratio 1.1, Lipase 27 02/06/24 12:10: Urine Color Yellow, Urine Clarity Clear, Urine pH 6.5, Ur Specific [place] 1.010, Urine Protein 15 H, Urine Glucose (UA) Normal, Urine Ketones Negative, Urine Occult Blood Negative, Urine Nitrite Negative, Urine Bilirubin Negative, Urine Urobilinogen Normal, Ur Leukocyte Esterase Negative, Urine RBC 0 SEEN, Urine WBC 0 SEEN, Ur Squamous Epith Cells 0 SEEN, Urine Bacteria 0 SEEN, Urine Mucus 0 SEEN 02/07/24 05:44: WBC 5.3, RBC 4.60, Hgb 13.7, Hct 39.7 L, MCV 86.3, MCH 29.8, MCHC 34.5, RDW Std Deviation 36.4, RDW Coeff of Elisabet 11.7, Plt Count 267, MPV 10.0, Immature Gran % (Auto) 0.600, Neut % (Auto) 69.2, Lymph % (Auto) 19.5, [place] % (Auto) 8.4, Eos % (Auto) 1.9, Baso % (Auto) 0.4, Absolute Neuts (auto) 3.7, Absolute Lymphs (auto) 1.04, Nucleated RBC % 0 Radiography Diagnostic Testing: Radiology Impression Abdomen/Pelvis CT 02/06/24 11:31 IMPRESSION: 1. Increasing intrahepatic and extrahepatic biliary ductal dilatation. No obstructing stones. ERCP will be very helpful for further evaluation. 2. Fullness of the bilateral renal collecting systems worrisome for mild bilateral hydronephrosis with increase dilatation of the bilateral renal pelvis but no hydroureter and no obstructing stones in the ureters and urinary bladder. No visible bladder mass but there is persistent thickening of the urinary bladder wall without obstruction of the bladder neck outlet or enlargement of the prostate gland. Cystoscopy will be very helpful for further evaluation. 3. Nonobstructing stones in both kidneys and smaller right kidney may be congenital. 4. 2.2 cm cyst behind the left urinary bladder wall and 1.3 x 1.1 cm cyst behind the right posterior urinary bladder wall. These are not dilated distal ureters. They may represent lymphoceles. These were present previously. 5. Prominent gastric hernia with gastrostomy tube in place. Electronically Signed: Steven Tran MD at 14:07 EDT , Physical Exam Narrative Seen and examined. Patient's mother near the bedside. I talked to her. Patient has limited cognition and higher mental function. Patient also looks stuffy nose, congested, URI-like symptoms Physical exam General: Awake, tossing on the bed, patient's mother states he is in pain. HEENT: Atraumatic, PERRLA, EOMI, Normocephalic Oral: Oral mucosa dry. No Gingival or Mucosal Lesions/ Ulcerations Neck: Supple, No JVD, Negative Carotid Bruits Chest wall/Lungs: Air entry diminished in bilateral lung bases. No crepitation/rhonchi Cardiovascular: Regular rate, Regular Rhythm, Normal S1, Normal S2, No M/G/R Abdomen: Bowel Sounds Present, Soft, buttonhole PEG tube tight and mild tenderness. Rest of the abdomen is soft and nontender. : No dysuria. No renal angle tenderness. No suprapubic tenderness. Extremities: No edema, Capillary Refill Less than 3 Seconds Skin: No rashes, No breakdown Musculoskeletal: No tenderness to muscle of extremities. ROM could not be evaluated because patient does not follow command. Neurological: Limited evaluation, has decreased cognition and intellectual ability. ADL limited/dependent Psych/Mental Status: Mildly irritable Assessment & Plan Assessment/Plan (1) Adult failure to thrive: PLAN: Plan The patient is a 38 y/o M was admitted with abdominal pain for more than 4 weeks. Patient has history of weight loss over 70 pounds since July 2023, lost 10 pounds in the last 2 weeks and had PEG tube placed 3 weeks ago. He complains of gurgling in the stomach. Denies fevers or diarrhea. #1. Chronic abdominal pain with severe weight loss, adult failure to thrive with severe protein calorie malnutrition: Patient had a recent PEG tube on 01/12/2024 with upper endoscopy with normal esophagus, eroding gastrostomy tube with noted edema, erosion and erythema with inflammation and ulceration, duodenal deformity, PEG tube removed at that time as it was dislodged and noted to be infected and replaced with an externally removable PEG. IV PPI. Scheduled Bentyl and Reglan, and sucralfate. GI consult. PT OT speech and continuity clerk consult. Pain control. 02/06: On exam, buttonhole PEG tube looks very tight and compressive. GI made aware and requested to loosen it. IV fluid for nutrition. #2. Increasing intrahepatic and extrapelvic biliary ductal dilatation, Unclear etiology: CT A/P with no obstructive stones, 01/11/2024 MRCP secondary to suspected choledocholithiasis and dilated common bile duct at that time was obtained with mild biliary ductal dilatation status postcholecystectomy. Liver chemistry reviewed normal range. Right upper quadrant sonogram ordered for tomorrow a.m. #3. Mild bilateral hydronephrosis: CT shows fullness of bilateral renal collecting system with increased dilatation of bilateral renal pelvis but no hydroureter or obstructive stones. No visual bladder mass persistent thickening of bladder wall without obstruction of bladder neck outlet or prostate enlargement. 2.2 cm behind left very lateral wall and 1.3 cyst in the right posterior kidney wall. Possible lymphoceles.BUN/creatinine normal. #4. 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 Hypertension: Continue home regimen including amlodipine, clonidine, labetalol, PRN hydralazine. #6. BPH with history of urinary outlet obstructive pathology: We will continue patient on Flomax regimen. #7. GERD with history of gastric volvulus previously: Status post previous Jason and now gastrostomy, we will continue patient on PPI. #8. Anxiety and depression: Will continue low-dose Ativan regimen. #9. DVT prophylaxis: Lovenox. #10. CODE status: Patient mother is his legal guardian. Discussed CODE status at length including difference between FULL code, DNR-CCA and DNR-CC status with his mother. Following discussions about the differences in these status, requested DNR-CCA, no intubation, no aggressive measures. Charges/Coding Visit Charges Inpatient E&M: 90094 Subs Hosp L2
[2024-02-07 07:45] VITALS: RESP 20; O2SAT 98
--- NOTE | 2024-02-07 07:45 | CPS ---
Pt has cognitive impairment, was able to do PEP device but couldn't do I.S., which his Mom expected. D/C'd I.S.
[2024-02-07 07:58] LABS: ALB/GLOB Ratio 1.1 RATIO (0.9-2.4); AST(SGOT) 45 U/L (15-37); Alanine Aminotransfer ALT/SGPT 76 U/L (16-61); Albumin, Serum 3.6 g/dL (3.2-5.0); Alkaline Phosphatase 100 U/L (45-117); Anion Gap 2 (5-15); BUN 11 mg/dL (7-18); BUN/Creat Ratio 13.6 RATIO (10-20); Calcium,Total 8.7 mg/dL (8.5-10.1); Chloride 109 mmol/L (98-107); Creatinine, Serum 0.81 mg/dL (0.70-1.30); EST Glomerular Filtration Rate 113 mL/min (>60); Est Glom Filt Rate - Afr Amer 136 mL/min (>60); Estimated Creatinine Clearance 102.52 ml/min; Globulin 3.4 g/dL (2.2-4.2); Glucose 101 mg/dL (74-106); Potassium 3.3 mmol/L (3.5-5.1); Sodium Level 140 mmol/L (136-145)
[2024-02-07 08:38] LABS: International Normalized Ratio 1.1; Prothrombin Time (Protime)PT. 13.9 SECONDS (11.7-14.9)
[2024-02-07] MEDS: 0.9% Normal Saline (1000mL) 1,000 ML 125 ML IV (08:50)
[2024-02-07] MEDS: Pantoprazole Sodium 40 MG in 0.9% Normal Saline (100mL MB+) 100 ML 330 MG IV ×2 (08:54→20:59)
[2024-02-07] MEDS: cloNIDine HCl 0.1 MG Tablet GT ×2 (08:58→21:03)
[2024-02-07] MEDS: Tamsulosin HCl 0.4 MG Capsule PO ×2 (08:59→21:04)
[2024-02-07] MEDS: amLODIPine 10 MG Tablet GT (08:59)
[2024-02-07] MEDS: Senna Tablet 2 TABLET GT ×2 (08:59→21:03)
[2024-02-07] MEDS: Enoxaparin 40 MG/0.4 ML Syringe SC (08:59)
[2024-02-07] MEDS: Labetalol 200 MG Tablet GT ×2 (08:59→21:03)
[2024-02-07] MEDS: Sodium Chloride 0.65% 1 SPRAY SPRAY.BTL 2 SPRAY NASAL ×2 (10:10→21:08)
[2024-02-07] MEDS: Loratadine 10 MG Tablet GT (10:10)
[2024-02-07] MEDS: guaiFENesin 1,200 MG Tablet 1200 MG PO ×2 (10:10→21:02)
[2024-02-07 11:00] VITALS: BP 160/88; PULSE 97; RESP 18; TEMP 36.8; O2SAT 97
[2024-02-07] MEDS: Ensure Plus High Protein 120 ML LIQUID PO ×3 (14:35→21:03)
[2024-02-07] MEDS: 0.9% Saline Lock 10 ML Syringe IV (14:38)
[2024-02-07 15:02] VITALS: BP 147/87; PULSE 88; RESP 18; TEMP 37.1; O2SAT 98
[2024-02-07 16:28] VITALS: BMI 24.7
--- NOTE | 2024-02-07 16:49 | CON.PCM.GI_ITS ---
HPI Consult Data Date of Consult: 02/07/24 HPI Narrative Reason for Consultation: abdominal pain HPI Narrative: Reason for Consultation: Abdominal pain with nausea vomiting HPI Narrative: JACKIE ARRINGTON, is a 38 M who presents to the hospital with his mother due to abdominal pain and poor p.o. intake, she says he is lost about 60 pounds in the last couple months. 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 His PEG tube is for venting purposes only. It was initially put in after he underwent PTC due to inability to do an ERCP for choledocholithiasis and a biliary stricture and development of gastric volvulus. When they went to take the PEG tube out he developed another gastric volvulus along with abdominal pain and cramping. Therefore it was placed back in the stomach for bloating and nausea but he does eat. He presented on 01/09/2024 because of increased abdominal pain he was given a dose of Ativan which calmed his anxiety which allowed him to eat however today his pain recurred and he had very poor p.o. intake so she brought him back to the hospital. Initially there was going to be an attempt to do outpatient gastroenterology workup however given the recurrence of his symptoms we will proceed with an inpatient workup. He got a CT scan abdomen pelvis after his blood work was essentially normal: Findings : dilated CBD 1. Increasing intrahepatic and extrahepatic biliary ductal dilatation. No obstructing stones. ERCP will be very helpful for further evaluation. 2. Fullness of the bilateral renal collecting systems worrisome for mild bilateral hydronephrosis with increase dilatation of the bilateral renal pelvis but no hydroureter and no obstructing stones in the ureters and urinary bladder. No visible bladder mass but there is persistent thickening of the urinary bladder wall without obstruction of the bladder neck outlet or enlargement of the prostate gland. Cystoscopy will be very helpful for further evaluation. 3. Nonobstructing stones in both kidneys and smaller right kidney may be congenital. 4. 2.2 cm cyst behind the left urinary bladder wall and 1.3 x 1.1 cm cyst behind the right posterior urinary bladder wall. These are not dilated distal ureters. They may represent lymphoceles. These were present previously. 5. Prominent gastric hernia with gastrostomy tube in place. [facility] Medical History Abrasion Cardiology follow-up encounter Cognitive developmental delay Gastric reflux Gastric volvulus Hypertension Non-smoker Prostate disease Shortness of breath on exertion Tourettes syndrome Urinary (tract) obstruction Judson syndrome Home Medications amlodipine 10 mg tablet 10 mg PO BID blood pressure 08/17/23 [History Last Taken Unknown] clonidine HCl 0.1 mg tablet 0.1 mg PO BID blood pressur 08/17/23 [History Last Taken Unknown] labetalol 200 mg tablet 200 mg PO BID blood pressure 08/17/23 [History Last Taken Unknown] omeprazole 40 mg capsule,delayed release 40 mg PO QHS acid reflux 08/17/23 [History Last Taken Unknown] tamsulosin 0.4 mg capsule 0.4 mg PO BID urine flow 30 days #60 caps 08/19/23 [Rx Last Taken Unknown] lorazepam 1 mg tablet (Ativan) 1 mg PO BID PRN nausea and vomiting #10 tabs 01/09/24 [Rx Last Taken Unknown] sennosides 8.6 mg tablet (senna) 17.2 mg PO BID stool softener 01/10/24 [History Last Taken Unknown] Allergy/AdvReac Type Severity Reaction Status Date / Time vancomycin Allergy Intermediate Rash Verified 01/10/24 19:56 Family History (Updated 01/10/24 @ 22:[address] Lincoln Whitmore MD) Other Heart disease Surgical History Gastrostomy status History of ERCP History of Jason fundoplication Hx of cholecystectomy Hx of laparoscopy Social History (Updated 01/10/24 @ 23:49 by Carrie Weinstein) household members: family housing: house Smoking Status: Never smoker ROS Constitutional Constitutional: Reports change in weight; Denies chills, fatigue, fever(s) or malaise Eyes Eyes: Denies blurry vision ENT HEENT: Denies headache(s) or nasal discharge Cardiovascular Cardiovascular: Denies chest pain, dyspnea on exertion or syncope Respiratory/Chest Respiratory/Chest: Denies cough, shortness of breath at rest or shortness of breath with exertion Gastrointestinal Gastrointestinal: Reports abdominal pain; Denies constipation, diarrhea, nausea or vomiting Genitourinary Genitourinary: Denies dysuria Neurologic Neurologic: Denies focal weakness, numbness or tremor(s) Psychiatric Psychiatric: Denies anxiety or depression Lab / Micro Data 01/11/24 05:50 01/11/24 05:50 Labs: Laboratory Results - last 24 hr 01/10/24 21:10: WBC 8.5, RBC 4.81, Hgb 14.7, Hct 41.6, MCV 86.5, MCH 30.6, MCHC 35.3, RDW Std Deviation 38.3, RDW Coeff of Elisabet 12.0, Plt Count 267, MPV 9.4, Immature Gran % (Auto) 0.200, Neut % (Auto) 77.4 H, Lymph % (Auto) 12.7 L, [place] % (Auto) 7.3, Eos % (Auto) 1.8, Baso % (Auto) 0.6, Absolute Neuts (auto) 6.6, Absolute Lymphs (auto) 1.08, Nucleated RBC % 0, Sodium 141, Potassium 3.8, Chloride 107, Carbon Dioxide 28.0, Anion Gap 6, BUN 17, Creatinine 0.93, Estim Creat Clear Calc 89.52, Est GFR (MDRD) Af Amer 117, Est GFR (MDRD) Non-Af 97, BUN/Creatinine Ratio 18.4, Glucose 115 H, Calcium 8.7, Total Bilirubin 0.40, Direct Bilirubin 0.12, AST 12 L, ALT 22, Alkaline Phosphatase 81, Total Protein 7.0, Albumin 3.9, Globulin 3.1, Lipase 27 01/11/24 05:50: WBC 4.8, RBC 4.55 L, Hgb 13.9, Hct 39.4 L, MCV 86.6, MCH 30.5, MCHC 35.3, RDW Std Deviation 38.5, RDW Coeff of Elisabet 12.1, Plt Count 232, MPV 9.8, Immature Gran % (Auto) 0.200, Neut % (Auto) 63.2, Lymph % (Auto) 22.1, [place] % (Auto) 11.4 H, Eos % (Auto) 2.3, Baso % (Auto) 0.8, Absolute Neuts (auto) 3.0, Absolute Lymphs (auto) 1.05, Nucleated RBC % 0, Sodium 142, Potassium 3.5, C hloride 111 H, Carbon Dioxide 27.0, Anion Gap 4 L, BUN 12, Creatinine 0.78, Estim Creat Clear Calc 107.91, Est GFR (MDRD) Af Amer 142, Est GFR (MDRD) Non-Af 117, BUN/Creatinine Ratio 15.4, Glucose 99, Calcium 8.3 L, Total Bilirubin 0.50, AST 12 L, ALT 21, Alkaline Phosphatase 75, Total Protein 6.7, Albumin 3.6, Globulin 3.1, Albumin/Globulin Ratio 1.2 01/11/24 16:20: Urine Color Yellow, Urine Clarity Clear, Urine pH 6.5, Ur Specific [place] 1.015, Urine Protein Negative, Urine Glucose (UA) Normal, Urine Ketones 5 H, Urine Occult Blood 10 H, Urine Nitrite Negative, Urine Bilirubin Negative, Urine Urobilinogen Normal, Ur Leukocyte Esterase Negative, Urine RBC 0-5 SEEN, Urine WBC 0 SEEN, Ur Squamous Epith Cells 0 SEEN, Urine Bacteria 0 SEEN, Urine Mucus 0 SEEN Assessment & Plan Assessment/Plan (1) Mc syndrome: (2) Abdominal pain: PLAN: Plan 38-year-old with history of multiple abdominal surgeries, hypertension, Judson syndrome who presents with progressive weight loss and abdominal pain Abdominal pain in the setting of Judson syndrome with a history of gastric volvulus/GERD ? Differential diagnosis does include mechanical induced gastroparesis secondary to PEG tube, pyloric stenosis as that is associated with Judson syndrome, choledocholithiasis, biliary stricture, peptic ulcer disease. ? He will undergo an ERCP WITH PEG REPLACEMENT [facility] Medical History Bladder wall thickening Common bile duct dilatation Mc syndrome Gastric volvulus Urinary (tract) obstruction Cognitive developmental delay Judson syndrome Abrasion Prostate disease Tourettes syndrome Gastric reflux Shortness of breath on exertion Non-smoker Cardiology follow-up encounter Hypertension Home Medications ?Medication ?Instructions ?Recorded ?Last Taken ?Type amlodipine 10 mg tablet 10 mg PO BID blood pressure 08/17/23 02/06/24 History clonidine HCl 0.1 mg tablet 0.1 mg PO BID blood pressur 08/17/23 02/06/24 History labetalol 200 mg tablet 200 mg PO BID blood pressure 08/17/23 02/06/24 History omeprazole 40 mg capsule,delayed 40 mg PO QHS acid reflux 08/17/23 Unknown History release tamsulosin 0.4 mg capsule 0.4 mg PO BID urine flow 30 days 08/19/23 02/06/24 Rx #60 caps sennosides 8.6 mg tablet (senna) 17.2 mg PO BID stool softener 01/10/24 02/06/24 History Allergy/AdvReac Type Severity Reaction Status Date / Time vancomycin Allergy Intermediate Rash Verified 02/06/24 15:47 Family History (Updated 02/06/24 @ 15:[address] Leatha Sanabria MD) Grandfather Heart disease Maternal grandfather. Grandmother Heart disease Maternal grandmother. Mother HLD (hyperlipidemia) Father No problems noted. Other Endometriosis Family History other Surgical History Gastrostomy status History of Jason fundoplication Hx of laparoscopy History of ERCP Hx of cholecystectomy Social History (Updated 02/06/24 @ 14:[address] Leatha Sanabria MD) household members: family housing: house Smoking Status: Never smoker alcohol intake: never substance use type: does not use Medical Records Data Medical Nutrition Assessment Dietitian: Malnutrition Criteria Met Start: 02/07/24 10:53 Freq: Status: Active Protocol: Document 02/08/24 11:20 SLA (Rec: 02/08/24 11:20 [facility] [id number]) Nutrition Malnutrition Evidence of Malnutrition Exists Yes Malnutrition (moderate): Chronic Evidenced By Suboptimal Energy Intake ( Moderate),Weight Loss ( Moderate),Physical Changes ( Mild) Clinical Problem Chronic Disease or Condition Related Malnutrition Etiology related to physiological changes impacting oral intakes Signs/Symptoms as evidenced by significant weight loss of 4.7% or 7lb in less than 1 month based upon wt of 150lb, poor oral intakes meeting less than 75% of estimated nutrient needs for at least the past month and mild muscle loss via temples, clavicles, etc. Status Active Problem Recommendation Dietitian Recommendations/Changes When able to resume diet, rec liberal Regular diet - consistency per [employer]EDER.. When able to resume diet, rec Ensure Plus High Protein with breakfast as well as 120mL 4x/ day with medpass as the pt tolerated ONS use to help increase oral intakes and prevent further weight loss. Recommend starting enteral feeding of [place] 1.5 as appropriate via PEG tube - start enteral feeding at 15mL/ hr x 24 hours and then advance by 10mL every 8 hours as tolerated to goal rate of 35mL /hr x 24 hours to meet at least 75% of estimated nutrient needs by providing 1260kcal, 54g protein and 638mL fluid. Recommend free water flush of 100mL q 4 hours . Rec transition to bolus or nocturnal feeding upon returning home if pt tolerates the enteral feeding. Will continue to follow the pt , monitor intakes and tolerance of ONS and enteral feeding, and modify recommendations as needed. Lab / Micro Data 02/07/24 05:44 02/07/24 05:44 Imaging Radiology Impression Abdomen Ultrasound 02/08/24 05:55 IMPRESSION: No suspicious sonographic findings, there is evidence of intra and extrahepatic biliary dilatation but I suspect this is simply sequela of previous cholecystectomy. Nonspecific echogenic pancreas suggests previous pancreatitis No obstructive uropathy, or suspicious solid renal lesion Electronically Signed: Raghu Jarrett MD at 12:48 EDT ,
[2024-02-07 20:58] VITALS: BP 160/96; PULSE 103; RESP 16; TEMP 37.1; O2SAT 98
[2024-02-08] VITALS (11 sets, daily range): BP systolic 147–181; BP diastolic 79–106; PULSE 92–128; RESP 16–18; TEMP 36.8–37.2; O2SAT 95–98; BMI 24.8
--- NOTE | 2024-02-08 05:55 | US_ITS ---
STUDY: ABDOMINAL ULTRASOUND - RIGHT UPPER QUADRANT REASON FOR VISIT: Male, 38 years old elevated LFTs TECHNIQUE: Ultrasound evaluation of the right upper quadrant was performed with real-time and static cornell-scale imaging. TECHNICAL QUALITY: Adequate. COMPARISON: CT scan from 02/06/2024 FINDINGS: Liver: The liver measures 13.4 cm. There is normal echogenicity of the liver. The bile ducts are dilated. There is hepatic color flow. The direction of portal flow is hepatopetal. There is no demonstrated mass lesion. Gallbladder: The patient is status post cholecystectomy. Common Bile Duct (C.B.D.): The common bile duct measures 12.1 mm. Pancreas: Normal size of the head, body and tail of the pancreas. There is increased echogenicity of the pancreas. There is no demonstrated pancreatic mass or cyst. Right Kidney: Normal size of the right kidney. The right kidney measures 9.5 x 4.9 x 4.5 cm. Normal renal cortex. The right cortex measures 1.1 cm. There is no demonstrated renal mass or cyst. There is no right hydronephrosis, there is nonspecific caliectasis of the upper pole calyx.. US/Abdomen Limited IMPRESSION: No suspicious sonographic findings, there is evidence of intra and extrahepatic biliary dilatation but I suspect this is simply sequela of previous cholecystectomy. Nonspecific echogenic pancreas suggests previous pancreatitis No obstructive uropathy, or suspicious solid renal lesion Electronically Signed: Raghu Jarrett MD at 12:48 EDT ,
[2024-02-08] MEDS: BACITRACIN/POLYMYXIN B 15 GM Tube 1 APPLIC TOPICAL ×2 (06:11→22:10)
[2024-02-08] MEDS: Metoclopramide 10 MG/2 ML Vial 5 MG IV ×2 (06:12→22:08)
--- NOTE | 2024-02-08 08:03 | PCM.PN.HOSP ---
Reason for Visit Reason for Visit: Diagnoses Adult failure to thrive (02/07/24) Subjective Subjective Patient is a 38-year-old gentleman with history of learning disability admitted with a 4-week history of abdominal pain Objective Data Objective Data Vital Signs: Vital Signs Temp Pulse Resp BP Pulse Ox O2 Del Method 98.5 F 92 16 152/95 H 98 Room Air 02/08/24 06:00 02/08/24 06:00 02/08/24 06:00 02/08/24 06:00 02/08/24 07:27 02/08/24 07:27 Oxygen Delivery Method Room Air Weight: 65.7 kg Body Mass Index (BMI) 24.8 Intake & Output: Intake and Output for Last 24 Hours 02/06/24 02/07/24 02/08/24 23:59 23:59 23:59 Intake Total 887.2 / 887.2 2640.83 / 2640.83 Output Total 725 / 725 825 / 825 Balance 162.2 / 162.2 1815.83 / 1815.83 Medical Nutrition Assessment Dietitian: Malnutrition Criteria Met Start: 02/07/24 10:53 Freq: Status: Active Protocol: Document 02/07/24 10:53 ERIC (Rec: 02/07/24 10:54 ERIC [id number]) Nutrition Malnutrition Evidence of Malnutrition Exists Yes Malnutrition (moderate): Chronic Evidenced By Suboptimal Energy Intake ( Moderate),Weight Loss ( Moderate),Physical Changes ( Mild) Clinical Problem Chronic Disease or Condition Related Malnutrition Etiology related to physiological changes impacting oral intakes Signs/Symptoms as evidenced by significant weight loss of 4.7% or 7lb in less than 1 month based upon wt of 150lb, poor oral intakes meeting less than 75% of estimated nutrient needs for at least the past month and mild muscle loss via temples, clavicles, etc. Status Active Problem Recommendation Dietitian Recommendations/Changes Continue with Regular diet at this time for liberalization. Will order Ensure Plus High Protein with breakfast as well as 120mL 4x/day with medpass as the pt tolerated ONS use to help increase oral intakes and prevent further weight loss. Recommend starting enteral feeding of Jevity 1.5 as appropriate via PEG tube - start enteral feeding at 15mL/ hr x 24 hours and then advance by 10mL every 8 hours as tolerated to goal rate of 35mL /hr x 24 hours to meet at least 75% of estimated nutrient needs by providing 1260kcal, 54g protein and 638mL fluid. Recommend free water flush of 100mL q 4 hours . Will continue to follow the pt , monitor intakes and tolerance of ONS and enteral feeding, and modify recommendations as needed. Lab / Micro Data 02/07/24 05:44 02/07/24 05:44 Labs: Laboratory Results - last 24 hr 02/07/24 08:20: PT 13.9, INR 1.1 Physical Exam Narrative GENERAL: Patient is restless in bed HEENT: Atraumatic; normocephalic EYES; Anicteric, Normal Conjunctiva NECK; supple, normal thyroid, RESPIRATORY: Diminished to auscultation CARDIOVASCULAR: Regular S1 S2, GI: soft, normoactive bowel sounds, : No Renal angle tenderness; EXTREMITIES: No edema, no clubbing, MUSCULOSKELETAL: no muscle wasting NEURO: Awake; no lateralizing signs. SKIN: No Rash PSYCH; Flat affect Assessment & Plan Assessment/Plan (1) Adult failure to thrive: PLAN: Plan Patient is a 38-year-old gentleman with history of learning disability admitted with a 4-week history of abdominal pain 1. Chronic abdominal pain with significant weight loss ? Patient had apparently undergone EGD with endoscopy found to have normal esophagus eroding gastrostomy tube with noted edema, erosion and erythema with inflammation and ulceration, duodenal deformity, PEG tube removed at that time as it was dislodged and noted to be infected and replaced with an externally removable PEG. Physical examination demonstrated very tight and compressive PEG tube GI reconsulted 2. Moderate protein calorie malnutrition ? with Suboptimal Energy Intake,Weight Loss as well as physical changes consult placed to dietitian 3. Physical deconditioning - Requested for PT OT eval and social services coordinator to assist with discharge planning 4. Increasing intrahepatic and extrapelvic biliary ductal dilatation, Unclear etiology: CT A/P with no obstructive stones, 01/11/2024 MRCP secondary to suspected choledocholithiasis and dilated common bile duct at that time was obtained with mild biliary ductal dilatation status postcholecystectomy. Liver chemistry reviewed normal range. Right upper quadrant sonogram ordered for subsequent monitoring. Consult placed to Dr. Scott plan is for patient to undergo ERCP with possible stent placement 5. Mild bilateral hydronephrosis - CT shows fullness of bilateral renal collecting system with increased dilatation of bilateral renal pelvis but no hydroureter or obstructive stones. No visual bladder mass persistent thickening of bladder wall without obstruction of bladder neck outlet or prostate enlargement. 2.2 cm behind left very lateral wall and 1.3 cyst in the right posterior kidney wall. Possible lymphoceles.BUN/creatinine normal. 6. 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 Hypertension - Blood pressure controlled, home medications continued with dose adjustment as needed, 8. BPH with lower urinary obstructive symptoms - Patient treated with tamsulosin 9. GERD with history of gastric volvulus previously - Status post previous Jason and now gastrostomy, we will continue patient on PPI. 9. Depression with anxiety ? Patient is on low-dose Ativan regimen 10. DVT prophylaxis ? SC Lovenox Time spent in the patient's overall evaluation,decision-making process, review of diagnostic data, adjustment of management, discussion with other providers, nursing nursing and ancillary staff involved in patient's care documentation, 52 Minutes Charges/Coding Visit Charges Inpatient E&M: 82131 [facility] Hosp L3
[2024-02-08] MEDS: Pantoprazole Sodium 40 MG in 0.9% Normal Saline (100mL MB+) 100 ML 330 MG IV ×2 (10:15→22:04)
[2024-02-08] MEDS: hydrALAZINE 20 MG/ML Vial 10 MG IV (10:15)
--- NOTE | 2024-02-08 11:55 | CASEMGMT ---
MARIANA RAMIREZ Readmission Note Previous Admission: 01/10/24-01/13/24 Diagnosis: Mc Syndrome with abd pain DC Disposition: Home Current Admission: Admitted 02/07/24 Pt presented to ER with mother for abd pain and wt loss of 10 pounds in last two weeks. Pt has hx of Judson Syndrome and is developmentally delayed. At last admission pt had PEG tube replaced and pt was able to tolerate a diet and dc'd home with follow up with . MARIANA RAMIREZ into pt room, pt mother present. Pt has seen his PCP since last hospitalization but was unable to see d/t appt not being until March. Pt mother is independent in feedings for pt. If pt cannot take Boost by mouth, she gives via peg 2-3 bottles per day. Pt uses [facility] and mother reports having enough supplies. Pt also does eat by mouth. Pt is scheduled for ERCP this date. Pt and mother deny any homegoing needs at this time. Pt is ambulatory without device and walks in [place]. MARIANA RAMIREZ to follow. DC Plan: Home with no needs
--- NOTE | 2024-02-08 15:17 | CHAPLAIN ---
Type of Pastoral Visit _x__ Initial Visit ___ Follow-up Visit ___ On-call Visit ___ General Patient Visit ___ Spiritual Assessment ___ Family Conference ___ Bereavement ___ Rapid Response ___ Code Blue ___ Other (describe below) Pastoral Care Referral From ___ Patient _x__ Family ___ Nurse ___ Physician ___ Quality Control Chemist ___ Supervisor Heat Treating ___ Other (describe below) Sacrament/Intervention ___ Active listening ___ Anointing ___ Nondenominational ___ Bereavement ___ Communion ___ Mishel exploration ___ ___ Life review _x__ Prayer ___ Reconciliation ___ Sacrament of Sick _x__ Supportive presence ___ Wedding ___ Other (describe below) Pastoral Comments upon entering the room the mother of patient states that pt will be going for surgery at any minute; offered to pray for pat and the surgery received as pt becomes tearful; family gives encouragement to patient and affirms need for a prayer; calm words and assurance given to pt that care will be great and that he is important for all to make sure he gets the care he deserves; prayer and presence
[2024-02-08] MEDS: 0.9% Normal Saline (1000mL) 1,000 ML 15 ML IV (15:29)
--- NOTE | 2024-02-08 16:08 | CASEMGMT ---
Social Work- Pt has guardianship papers naming Toshia Valdez on file with [facility]. LI Monsivais
--- NOTE | 2024-02-08 17:00 | RAD_ITS ---
ERCP next INDICATION: Abdominal pain. Fluoroscopy time: 286 seconds Images obtained: 4 TECHNIQUE: Fluoroscopy the abdomen was utilized in the operating room during an ERCP in 4 images are submitted for interpretation. RAD/ERCP Biliary Only IMPRESSION: Fluoroscopy during ERCP. Electronically Signed: Andrés Hairston MD at 19:11 EDT ,
--- NOTE | 2024-02-08 18:35 | OP.ERCP_ITS ---
Patient Name: Aleksandr Lopez Procedure Date: 02/08/2024 4:36 PM Date of : 1985 Age: 38 Procedure: ERCP Indications: Benign stricture of the common bile duct, Abnormal abdominal CT, Abnormal MRCP, Elevated liver enzymes Providers: Bradford Scott DO Medicines: Monitored Anesthesia Care Patient Profile: This is a 38 year old male. Refer to note in patient chart for documentation of history and physical. Patient has symptoms of acute right upper quadrant abdominal pain. Complications: No immediate complications. Procedure: Pre-Anesthesia Assessment: - Prior to the procedure, a History and Physical was performed, and patient medications and allergies were reviewed. The patient is competent. The risks and benefits of the procedure and the sedation options and risks were discussed with the patient. All questions were answered and informed consent was obtained. Patient identification and proposed procedure were verified by the physician in the pre-procedure area. Mental Status Examination: alert and oriented. Airway Examination: normal oropharyngeal airway and neck mobility. Respiratory Examination: clear to auscultation. CV Examination: normal. Prophylactic Antibiotics: The patient does not require prophylactic antibiotics. Prior Anticoagulants: The patient has taken no anticoagulant or antiplatelet agents. After reviewing the risks and benefits, the patient was deemed in satisfactory condition to undergo the procedure. The anesthesia plan was to use general anesthesia. Immediately prior to administration of medications, the patient was re-assessed for adequacy to receive sedatives. The heart rate, respiratory rate, oxygen saturations, blood pressure, adequacy of pulmonary ventilation, and response to care were monitored throughout the procedure. The physical status of the patient was re-assessed after the procedure. After obtaining informed consent, the scope was passed under direct vision. Throughout the procedure, the patient's blood pressure, pulse, and oxygen saturations were monitored continuously. The Duodenoscope was introduced through the mouth, and advanced to the duodenum and used to inject contrast into the ventral pancreatic duct. The ERCP was accomplished without difficulty. The patient tolerated the procedure. Scope In: 5:06:43 PM Scope Out: 6:21:35 PM Total Procedure Duration Time 1 hour 14 minutes 52 seconds Findings: The flight technician film was normal. The esophagus was successfully intubated under direct vision. The scope was advanced to a normal major papilla in the descending duodenum without detailed examination of the pharynx, larynx and associated structures, and upper GI tract. The upper GI tract was grossly normal. The ventral pancreatic duct was deeply cannulated with the short-nosed traction sphincterotome. Contrast was injected. I personally interpreted the pancreatic duct images. Image quality was adequate. Contrast extended to the proximal pancreatic duct. Opacification of the ventral pancreatic duct in the head of the pancreas was intentionally incomplete to decrease the risk of post-ERCP pancreatitis. The maximum diameter of the ducts was 2 mm. A long 0.025 inch Jagwire was passed into the ventral pancreatic duct. A 5 mm ventral pancreatic sphincterotomy was made with a traction (standard) sphincterotome using ERBE electrocautery. There was no post-sphincterotomy bleeding. Located ampulla in the future, one hemostatic clip was successfully placed. Clip causticiser: [employer]. There was no bleeding at the end of the procedure. The bile duct could not be cannulated. His PEG tube was replaced with a 20 Uzbek by 4 cm SYBIL tube. Impression: - One hemostatic clip was successfully placed. Clip causticiser: [employer]. - A pancreatic sphincterotomy was performed. Procedure Code(s): --- Professional --- 64973, Endoscopic retrograde cholangiopancreatography (ERCP); with sphincterotomy/papillotomy 95003, 26, Endoscopic catheterization of the pancreatic ductal system, radiological supervision and interpretation CPT copyright 2021 [employer]. All rights reserved. The codes documented in this report are preliminary and upon water taxi driver review may be revised to meet current compliance requirements. Bradford Scott DO 02/08/2024 6:34:23 PM This report has been signed electronically. Number of Addenda: 0 Note Initiated On: 02/08/2024 4:36 PM
--- NOTE | 2024-02-08 18:35 | OP.CCLET_ITS ---
02/08/2024 Leonard Arechiga Re : ERCP procedure for Aleksandr Arechiga This procedure was performed on Thursday, February 08, 2024. My impressions and recommendations are as follows: Impressions : - One hemostatic clip was successfully placed. Clip pediatric rn: [employer]. - A pancreatic sphincterotomy was performed. Recommendations : My findings are described in the full procedure note, which is enclosed. If I can be of further assistance, please feel free to contact me at . Sincerely, Bradford Scott, 02/08/2024 6:34:23 PM This report has been signed electronically.
[2024-02-08] MEDS: Lactated Ringers 1,000 ML 200 ML IV (18:42)
[2024-02-09 05:26] VITALS: BMI 24.7
[2024-02-09] MEDS: BACITRACIN/POLYMYXIN B 15 GM Tube 1 APPLIC TOPICAL ×3 (06:01→22:00)
[2024-02-09] MEDS: Metoclopramide 10 MG/2 ML Vial 5 MG IV ×3 (06:02→22:02)
[2024-02-09 06:09] VITALS: BP 155/78; PULSE 79; RESP 16; TEMP 36.7; O2SAT 96
--- NOTE | 2024-02-09 07:23 | PCM.PN.HOSP ---
Reason for Visit Reason for Visit: Diagnoses Adult failure to thrive (02/07/24) Subjective Subjective Patient underwent successful pancreatic sphincterotomy by Dr. Scott on 02/08/2024 patient still complains of abdominal pain Objective Data Objective Data Vital Signs: Vital Signs Temp Pulse Resp BP Pulse Ox O2 Del Method 98.0 F 79 16 155/78 H 96 Room Air 02/09/24 06:09 02/09/24 06:09 02/09/24 06:09 02/09/24 06:09 02/09/24 06:09 02/09/24 06:09 Oxygen Delivery Method Room Air Weight: 65.7 kg Body Mass Index (BMI) 24.7 Intake & Output: Intake and Output for Last 24 Hours 02/07/24 02/08/24 02/09/24 23:59 23:59 23:59 Intake Total 2640.83 / 2640.83 1920 / 1920 Output Total 825 / 825 400 / 400 Balance 1815.83 / 1815.83 1520 / 1520 Medical Nutrition Assessment Dietitian: Malnutrition Criteria Met Start: 02/07/24 10:53 Freq: Status: Active Protocol: Document 02/08/24 11:20 SLA (Rec: 02/08/24 11:20 SLA [id number]) Nutrition Malnutrition Evidence of Malnutrition Exists Yes Malnutrition (moderate): Chronic Evidenced By Suboptimal Energy Intake ( Moderate),Weight Loss ( Moderate),Physical Changes ( Mild) Clinical Problem Chronic Disease or Condition Related Malnutrition Etiology related to physiological changes impacting oral intakes Signs/Symptoms as evidenced by significant weight loss of 4.7% or 7lb in less than 1 month based upon wt of 150lb, poor oral intakes meeting less than 75% of estimated nutrient needs for at least the past month and mild muscle loss via temples, clavicles, etc. Status Active Problem Recommendation Dietitian Recommendations/Changes When able to resume diet, rec liberal Regular diet - consistency per BIT SHARPENER OPERATOR.. When able to resume diet, rec Ensure Plus High Protein with breakfast as well as 120mL 4x/ day with medpass as the pt tolerated ONS use to help increase oral intakes and prevent further weight loss. Recommend starting enteral feeding of Jevity 1.5 as appropriate via PEG tube - start enteral feeding at 15mL/ hr x 24 hours and then advance by 10mL every 8 hours as tolerated to goal rate of 35mL /hr x 24 hours to meet at least 75% of estimated nutrient needs by providing 1260kcal, 54g protein and 638mL fluid. Recommend free water flush of 100mL q 4 hours . Rec transition to bolus or nocturnal feeding upon returning home if pt tolerates the enteral feeding. Will continue to follow the pt , monitor intakes and tolerance of ONS and enteral feeding, and modify recommendations as needed. Lab / Micro Data 02/07/24 05:44 02/07/24 05:44 Radiography Diagnostic Testing: Radiology Impression Abdomen Ultrasound 02/08/24 05:55 IMPRESSION: No suspicious sonographic findings, there is evidence of intra and extrahepatic biliary dilatation but I suspect this is simply sequela of previous cholecystectomy. Nonspecific echogenic pancreas suggests previous pancreatitis No obstructive uropathy, or suspicious solid renal lesion Electronically Signed: Raghu Jarrett MD at 12:48 EDT , ERCP X-Ray 02/08/24 17:00 IMPRESSION: Fluoroscopy during ERCP. Electronically Signed: Andrés Hairston MD at 19:11 EDT , Physical Exam Narrative GENERAL: Patient is restless in bed HEENT: Atraumatic; normocephalic EYES; Anicteric, Normal Conjunctiva NECK; supple, normal thyroid, RESPIRATORY: Diminished to auscultation CARDIOVASCULAR: Regular S1 S2, GI: soft, normoactive bowel sounds, : No Renal angle tenderness; EXTREMITIES: No edema, no clubbing, MUSCULOSKELETAL: no muscle wasting NEURO: Awake; no lateralizing signs. SKIN: No Rash PSYCH; Flat affect Assessment & Plan Assessment/Plan (1) Adult failure to thrive: PLAN: Plan Patient is a 38-year-old gentleman with history of learning disability admitted with a 4-week history of abdominal pain 1. Chronic abdominal pain with significant weight loss ? Patient had apparently undergone EGD with endoscopy found to have normal esophagus eroding gastrostomy tube with noted edema, erosion and erythema with inflammation and ulceration, duodenal deformity, PEG tube removed at that time as it was dislodged and noted to be infected and replaced with an externally removable PEG. Physical examination demonstrated very tight and compressive PEG tube GI reconsulted 2. Increasing intrahepatic and extrapelvic biliary ductal dilatation, Unclear etiology: CT A/P with no obstructive stones, 01/11/2024 MRCP secondary to suspected choledocholithiasis and dilated common bile duct at that time was obtained with mild biliary ductal dilatation status postcholecystectomy. Liver chemistry reviewed normal range. Right upper quadrant sonogram ordered for subsequent monitoring. Consult placed to Dr. Scott plan is for patient to undergo ERCP with possible stent placement -02/08/2022. Patient underwent successful pancreatic sphincterotomy by Dr. Scott on 02/08/2024. Still complains of abdominal pain. Further management decisions deferred to Dr. Scott 3. Moderate protein calorie malnutrition ? with Suboptimal Energy Intake,Weight Loss as well as physical changes consult placed to dietitian 4. Physical deconditioning - Requested for PT OT eval and elementary school social worker to assist with discharge planning 5. Mild bilateral hydronephrosis - CT shows fullness of bilateral renal collecting system with increased dilatation of bilateral renal pelvis but no hydroureter or obstructive stones. No visual bladder mass persistent thickening of bladder wall without obstruction of bladder neck outlet or prostate enlargement. 2.2 cm behind left very lateral wall and 1.3 cyst in the right posterior kidney wall. Possible lymphoceles.BUN/creatinine normal. 6. 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 Hypertension - Blood pressure controlled, home medications continued with dose adjustment as needed, 8. BPH with lower urinary obstructive symptoms - Patient treated with tamsulosin 9. GERD with history of gastric volvulus previously - Status post previous Jason and now gastrostomy, we will continue patient on PPI. 9. Depression with anxiety ? Patient is on low-dose Ativan regimen 10. DVT prophylaxis ? SC Lovenox Time spent in the patient's overall evaluation,decision-making process, review of diagnostic data, adjustment of management, discussion with other providers, nursing nursing and ancillary staff involved in patient's care documentation, 35 Minutes Charges/Coding Visit Charges Inpatient E&M: 30021 Subs Hosp L2
[2024-02-09 09:00] VITALS: BP 161/85; PULSE 85; RESP 18; TEMP 36.3; O2SAT 98
[2024-02-09] MEDS: guaiFENesin 1,200 MG Tablet 1200 MG PO ×2 (11:13→21:59)
[2024-02-09] MEDS: Dicyclomine 10 MG Capsule 20 MG GT ×3 (11:14→21:58)
[2024-02-09] MEDS: Sucralfate 1 GM Tablet GT ×3 (11:14→21:58)
[2024-02-09] MEDS: amLODIPine 10 MG Tablet GT (11:15)
[2024-02-09] MEDS: Loratadine 10 MG Tablet GT (11:16)
[2024-02-09] MEDS: cloNIDine HCl 0.1 MG Tablet GT ×2 (11:16→21:59)
[2024-02-09] MEDS: Labetalol 200 MG Tablet GT ×2 (11:16→22:02)
[2024-02-09] MEDS: Tamsulosin HCl 0.4 MG Capsule PO ×2 (11:16→21:59)
[2024-02-09] MEDS: Pantoprazole Sodium 40 MG in 0.9% Normal Saline (100mL MB+) 100 ML 330 MG IV ×2 (11:23→21:57)
[2024-02-09] MEDS: Morphine 2 MG/ML Syringe IV (11:23)
[2024-02-09] MEDS: Ensure Plus High Protein 120 ML LIQUID PO (11:27)
[2024-02-09] MEDS: KCL 20MEQ in D5.45NS 20 MEQ/1,000 ML IV.SOLN. 100 MEQ IV (14:11)
[2024-02-09] MEDS: Ensure Clear 120 ML Liquid PO ×3 (14:13→22:04)
[2024-02-09 16:00] VITALS: BP 145/83; PULSE 77; RESP 18; TEMP 36.8; O2SAT 98
--- NOTE | 2024-02-09 17:22 | PN.GI_ITS ---
Subjective Subjective The patient underwent ERCP yesterday and cannulation of the pancreatic duct was able to be obtained but cannulation of the bile duct was not able to be obtained due to patient's abnormal anatomy. After talking with his mother after the procedure she explained that he had to get a rendezvous procedure (radiology placed percutaneous transhepatic cholangioscopy assisted ERCP )at [facility] to access the bile duct due to abnormal anatomy. Objective Data Objective Data Vital Signs: Vital Signs Temp Pulse Resp BP Pulse Ox O2 Del Method 97.3 F L 85 18 161/85 H 98 Room Air 02/09/24 09:00 02/09/24 09:00 02/09/24 09:00 02/09/24 09:00 02/09/24 09:00 02/09/24 09:00 Oxygen Delivery Method Room Air Weight: 144 lb 13.499 oz Body Mass Index (BMI) 24.7 Intake & Output: Intake and Output for Last 24 Hours 02/07/24 02/08/24 02/09/24 23:59 23:59 23:59 Intake Total 2640.83 / 2640.83 1920 / 1920 110 / 110 Output Total 825 / 825 400 / 400 Balance 1815.83 / 1815.83 1520 / 1520 110 / 110 Medical Nutrition Assessment Dietitian: Malnutrition Criteria Met Start: 02/07/24 10:53 Freq: Status: Active Protocol: Document 02/08/24 11:20 SLA (Rec: 02/08/24 11:20 SLA [id number]) Nutrition Malnutrition Evidence of Malnutrition Exists Yes Malnutrition (moderate): Chronic Evidenced By Suboptimal Energy Intake ( Moderate),Weight Loss ( Moderate),Physical Changes ( Mild) Clinical Problem Chronic Disease or Condition Related Malnutrition Etiology related to physiological changes impacting oral intakes Signs/Symptoms as evidenced by significant weight loss of 4.7% or 7lb in less than 1 month based upon wt of 150lb, poor oral intakes meeting less than 75% of estimated nutrient needs for at least the past month and mild muscle loss via temples, clavicles, etc. Status Active Problem Recommendation Dietitian Recommendations/Changes When able to resume diet, rec liberal Regular diet - consistency per AMBULATORY SERVICE REPRESENTATIVE.. When able to resume diet, rec Ensure Plus High Protein with breakfast as well as 120mL 4x/ day with medpass as the pt tolerated ONS use to help increase oral intakes and prevent further weight loss. Recommend starting enteral feeding of Jevity 1.5 as appropriate via PEG tube - start enteral feeding at 15mL/ hr x 24 hours and then advance by 10mL every 8 hours as tolerated to goal rate of 35mL /hr x 24 hours to meet at least 75% of estimated nutrient needs by providing 1260kcal, 54g protein and 638mL fluid. Recommend free water flush of 100mL q 4 hours . Rec transition to bolus or nocturnal feeding upon returning home if pt tolerates the enteral feeding. Will continue to follow the pt , monitor intakes and tolerance of ONS and enteral feeding, and modify recommendations as needed. Lab / Micro Data 02/07/24 05:44 02/07/24 05:44 Radiography Diagnostic Testing: Radiology Impression ERCP X-Ray 02/08/24 17:00 IMPRESSION: Fluoroscopy during ERCP. Electronically Signed: Andrés Hairston MD at 19:11 EDT , Physical Exam Narrative GENERAL: Patient is restless in bed HEENT: Atraumatic; normocephalic EYES; Anicteric, Normal Conjunctiva NECK; supple, normal thyroid, RESPIRATORY: Diminished to auscultation CARDIOVASCULAR: Regular S1 S2, GI: soft, normoactive bowel sounds, : No Renal angle tenderness; EXTREMITIES: No edema, no clubbing, MUSCULOSKELETAL: no muscle wasting NEURO: Awake; no lateralizing signs. SKIN: No Rash PSYCH; Flat affect Assessment & Plan Assessment/Plan (1) Adult failure to thrive: (2) Weight loss: (3) Abdominal pain: PLAN: Plan 38-year-old with Judson syndrome , esophageal dysphagia status post PEG tube and abdominal pain with history of biliary stricture status post ERCP at outside institution with recurrent stricture -We change his PEG tube via endoscopy yesterday. -He will have to go to an institution that can do a rendezvous procedure -Continue tube feedings as suggested by dietitian Charges/Coding Visit Charges Inpatient E&M: 04083 Subs Hosp L3
[2024-02-09 21:15] VITALS: BP 163/77; PULSE 90; RESP 16; TEMP 36.5; O2SAT 98
[2024-02-09] MEDS: Senna Tablet 2 TABLET GT (22:02)
[2024-02-09 22:10] VITALS: BP 168/78; PULSE 87; RESP 16; TEMP 36.9; O2SAT 97
[2024-02-10] MEDS: KCL 20MEQ in D5.45NS 20 MEQ/1,000 ML IV.SOLN. 100 MEQ IV (00:20)
[2024-02-10] MEDS: Metoclopramide 10 MG/2 ML Vial 5 MG IV (05:05)
[2024-02-10] MEDS: BACITRACIN/POLYMYXIN B 15 GM Tube 1 APPLIC TOPICAL (05:05)
[2024-02-10] MEDS: Sucralfate 1 GM Tablet PO (05:05)
[2024-02-10] MEDS: Dicyclomine 10 MG Capsule 20 MG PO ×2 (05:05→10:48)
[2024-02-10 05:11] VITALS: BP 146/78; PULSE 72; RESP 16; TEMP 36.6; O2SAT 97
[2024-02-10 05:20] VITALS: BMI 24.3
--- NOTE | 2024-02-10 07:55 | EX.PCM.PN.GI ---
Subjective Subjective Attempted ERCP yesterday. Pancreatic duct was able to be cannulated but not the common bile duct due to his history of rendezvous procedure needing to get into the common bile duct for recurrent biliary stricture. Objective Data Objective Data Vital Signs: Vital Signs Temp Pulse Resp BP Pulse Ox O2 Del Method 99.2 F H 88 18 158/99 H 99 Room Air 02/10/24 09:11 02/10/24 09:11 02/10/24 09:11 02/10/24 09:11 02/10/24 09:11 02/10/24 09:11 Oxygen Delivery Method Room Air Weight: 142 lb 10.225 oz Body Mass Index (BMI) 24.3 Intake & Output: Intake and Output for Last 24 Hours 02/08/24 02/09/24 02/10/24 23:59 23:59 23:59 Intake Total 1920 / 1920 1450 / 1750 2523.33 / 2523.33 Output Total 400 / 400 Balance 1520 / 1520 1450 / 1750 2523.33 / 2523.33 Lab / Micro Data 02/07/24 05:44 02/07/24 05:44 Physical Exam Narrative GENERAL: Patient in no apparent distress HEENT: Atraumatic; normocephalic EYES; Anicteric, Normal Conjunctiva NECK; supple, normal thyroid, RESPIRATORY: Diminished to auscultation CARDIOVASCULAR: Regular S1 S2, GI: soft, normoactive bowel sounds, : No Renal angle tenderness; EXTREMITIES: No edema, no clubbing, MUSCULOSKELETAL: no muscle wasting NEURO: Awake; no lateralizing signs. SKIN: No Rash PSYCH; Flat affect Assessment & Plan Assessment/Plan (1) Adult failure to thrive: (2) Weight loss: (3) Abdominal pain: PLAN: Plan 38-year-old with Judson syndrome , esophageal dysphagia status post PEG tube and abdominal pain with history of biliary stricture status post ERCP at outside institution with recurrent stricture -We change his PEG tube via endoscopy yesterday. -He will have to go to an institution that can do a rendezvous procedure -Continue tube feedings as suggested by dietitian Charges/Coding Visit Charges Inpatient E&M: 71168 Subs Hosp L3
[2024-02-10 09:11] VITALS: BP 158/99; PULSE 88; RESP 18; TEMP 37.3; O2SAT 99
[2024-02-10] MEDS: Labetalol 200 MG Tablet PO (09:15)
[2024-02-10] MEDS: amLODIPine 10 MG Tablet PO (09:16)
[2024-02-10] MEDS: cloNIDine HCl 0.1 MG Tablet PO (09:16)
[2024-02-10] MEDS: Senna Tablet 2 TABLET PO (09:16)
[2024-02-10] MEDS: guaiFENesin 1,200 MG Tablet 1200 MG PO (09:17)
[2024-02-10] MEDS: Tamsulosin HCl 0.4 MG Capsule PO (09:17)
[2024-02-10] MEDS: Loratadine 10 MG Tablet PO (09:17)
--- NOTE | 2024-02-10 09:26 | DS.PCM_ITS ---
Providers Date of Admission: 02/07/24 Date of Discharge: 02/10/24 Primary Care Physician: Dr. Leonard Arechiga MD Consultations 02/06/24 15:52 Consult: Gastroenterology Routine Consulting Provider: [facility] Reason for Consult: recurrent abdominal pain EMERGENT Consult: No MD Notified: Yes Date Notified: 02/06/24 Time Notified: 15:01 Method of Notification: ED Physician Initiated Reason For Visit: ADULT FTT, ABDOMINAL PAIN Diagnosis Discharge Diagnosis (1) Adult failure to thrive: Status: Acute Code(s): R62.7 - Adult failure to thrive (2) Weight loss: Status: Acute Code(s): R63.4 - Abnormal weight loss (3) Abdominal pain: Status: Acute Code(s): R10.9 - Unspecified abdominal pain Plan Patient is a 38-year-old gentleman with history of learning disability admitted with a 4-week history of abdominal pain 1. Chronic abdominal pain with significant weight loss ? Patient had apparently undergone EGD with endoscopy found to have normal esophagus eroding gastrostomy tube with noted edema, erosion and erythema with inflammation and ulceration, duodenal deformity, PEG tube removed at that time as it was dislodged and noted to be infected and replaced with an externally removable PEG. Physical examination demonstrated very tight and compressive PEG tube GI reconsulted 2. Increasing intrahepatic and extrapelvic biliary ductal dilatation, Unclear etiology: CT A/P with no obstructive stones, 01/11/2024 MRCP secondary to suspected choledocholithiasis and dilated common bile duct at that time was obtained with mild biliary ductal dilatation status postcholecystectomy. Liver chemistry reviewed normal range. Right upper quadrant sonogram ordered for subsequent monitoring. Consult placed to Dr. Scott plan is for patient to undergo ERCP with possible stent placement -02/08/2022. Patient underwent successful pancreatic sphincterotomy by Dr. Scott on 02/08/2024. Still complains of abdominal pain. Further management decisions deferred to Dr. Scott -Decision was made to discharge patient home. Patient was instructed to follow- up at [facility] for interval procedure for his recurrent stricture. 3. Moderate protein calorie malnutrition ? with Suboptimal Energy Intake,Weight Loss as well as physical changes consult placed to dietitian 4. Physical deconditioning - Requested for PT OT eval and nephrology social worker to assist with discharge planning 5. Mild bilateral hydronephrosis - CT shows fullness of bilateral renal collecting system with increased dilatation of bilateral renal pelvis but no hydroureter or obstructive stones. No visual bladder mass persistent thickening of bladder wall without obstruction of bladder neck outlet or prostate enlargement. 2.2 cm behind left very lateral wall and 1.3 cyst in the right posterior kidney wall. Possible lymphoceles.BUN/creatinine normal. 6. 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 Hypertension - Blood pressure controlled, home medications continued with dose adjustment as needed, 8. BPH with lower urinary obstructive symptoms - Patient treated with tamsulosin 9. GERD with history of gastric volvulus previously - Status post previous Jason and now gastrostomy, we will continue patient on PPI. 9. Depression with anxiety ? Patient is on low-dose Ativan regimen 10. DVT prophylaxis ? [facility] Time spent in the patient's overall evaluation,decision-making process, review of diagnostic data, adjustment of management, discussion with other providers, nursing nursing and ancillary staff involved in patient's care documentation, 35 Minutes Medications at Discharge Home Medications amlodipine 10 mg tablet 10 mg PO BID blood pressure 08/17/23 clonidine HCl 0.1 mg tablet 0.1 mg PO BID blood pressur 08/17/23 labetalol 200 mg tablet 200 mg PO BID blood pressure 08/17/23 omeprazole 40 mg capsule,delayed release 40 mg PO QHS acid reflux 08/17/23 tamsulosin 0.4 mg capsule 0.4 mg PO BID urine flow 30 days #60 caps 08/19/23 sennosides 8.6 mg tablet (senna) 17.2 mg PO BID stool softener 01/10/24 oxycodone 5 mg tablet 5 mg PO Q4H PRN PRN Pain Score 4-10 5 days #20 tabs 02/10/24 pantoprazole 40 mg tablet,delayed release (Protonix) 40 mg PO DAILY #60 tabs 02/10/24 sucralfate 1 gram tablet 1 g PO 1HR_ACHS 30 days #90 tabs 02/10/24 Physical Exam Narrative GENERAL: Patient in no apparent distress HEENT: Atraumatic; normocephalic EYES; Anicteric, Normal Conjunctiva NECK; supple, normal thyroid, RESPIRATORY: Diminished to auscultation CARDIOVASCULAR: Regular S1 S2, GI: soft, normoactive bowel sounds, : No Renal angle tenderness; EXTREMITIES: No edema, no clubbing, MUSCULOSKELETAL: no muscle wasting NEURO: Awake; no lateralizing signs. SKIN: No Rash PSYCH; Flat affect Medical Records Data Medical Nutrition Assessment Dietitian: Malnutrition Criteria Met Start: 02/07/24 10:53 Freq: Status: Active Protocol: Document 02/08/24 11:20 SLA (Rec: 02/08/24 11:20 SLA 1606-2-10) Nutrition Malnutrition Evidence of Malnutrition Exists Yes Malnutrition (moderate): Chronic Evidenced By Suboptimal Energy Intake ( Moderate),Weight Loss ( Moderate),Physical Changes ( Mild) Clinical Problem Chronic Disease or Condition Related Malnutrition Etiology related to physiological changes impacting oral intakes Signs/Symptoms as evidenced by significant weight loss of 4.7% or 7lb in less than 1 month based upon wt of 150lb, poor oral intakes meeting less than 75% of estimated nutrient needs for at least the past month and mild muscle loss via temples, clavicles, etc. Status Active Problem Recommendation Dietitian Recommendations/Changes When able to resume diet, rec liberal Regular diet - consistency per SENIOR TECHNICAL WRITER.. When able to resume diet, rec Ensure Plus High Protein with breakfast as well as 120mL 4x/ day with medpass as the pt tolerated ONS use to help increase oral intakes and prevent further weight loss. Recommend starting enteral feeding of Jevity 1.5 as appropriate via PEG tube - start enteral feeding at 15mL/ hr x 24 hours and then advance by 10mL every 8 hours as tolerated to goal rate of 35mL /hr x 24 hours to meet at least 75% of estimated nutrient needs by providing 1260kcal, 54g protein and 638mL fluid. Recommend free water flush of 100mL q 4 hours . Rec transition to bolus or nocturnal feeding upon returning home if pt tolerates the enteral feeding. Will continue to follow the pt , monitor intakes and tolerance of ONS and enteral feeding, and modify recommendations as needed. Weight / BMI Weight Weight: 64.7 kg Body Mass Index (BMI) 24.3 ABG / Lab / Microbiology Data 02/07/24 05:44 02/07/24 05:44 D/C Instructions Discharge Diet: No restrictions Discharge Activity: Return to Normal Activity Call your doctor if you observe: Fever of 101 or Higher, Shortness of breath, Fainting spells and Chest pain Meaningful Use Info Meaningful Use Meaningful Use Diagnoses (Choose all that apply): None applicable Ischemic Stroke Statin Dosing Therapy Reference: STATIN DOSE THERAPY REFERENCE: * Patients > 75 years receive moderate or high dose statin therapy. * Patients 75 years or YOUNGER should receive HIGH intensity statin dose unless contraindicated. You will be required to document reason for non-treatment if statin daily dose does not meet guidelines. HIGH DOSE STATIN THERAPY DAILY Atorvastatin > than or = to 40 mg Rosuvastatin > than or = to 20 mg Amlodipine + Atorvastatin > than or = to 2.5/40 mg Ezetimibe + Simvastatin 10/80 mg Simvastatin 80mg Discharge Plan Admission Admit Date/Time: 02/07/24 10:30 Attending Provider: Jose R Kim Primary Care Provider: Leonard Arechiga Consulting Providers: Leatha Sanabria; Star Godfrey Discharge Orders/Prescriptions Prescriptions: New sucralfate 1 gram Tablet 1 g PO 1HR_ACHS 30 Days Qty: 90 0RF oxycodone 5 mg Tablet 5 mg PO Q4H PRN PRN (Reason: Pain Score 4-10) 5 Days Qty: 20 0RF pantoprazole [Protonix] 40 mg tablet,delayed release (DR/EC) 40 mg PO DAILY Qty: 60 0RF Continued omeprazole 40 mg capsule,delayed release(DR/EC) 40 mg PO QHS Patient Comments: TAKE 1 CAPSULE BY MOUTH ONCE DAILY clonidine HCl 0.1 mg tablet 0.1 mg PO BID Patient Comments: TAKE 1 TABLET BY MOUTH THREE TIMES DAILY amlodipine 10 mg tablet 10 mg PO BID labetalol 200 mg tablet 200 mg PO BID tamsulosin 0.4 mg capsule 0.4 mg PO BID 30 Days Qty: 60 11RF sennosides [senna] 8.6 mg tablet 17.2 mg PO BID Referrals / Follow Up: Leonard Arechiga MD [Primary Care Provider] - Within 1 Week Disposition Disposition (needs filled in before D/C Order can be placed): Home, Self Care Charges/Coding Visit Charges Inpatient E&M: 95363 Disch Hosp >30min
[2024-02-10] MEDS: Pantoprazole Sodium 40 MG in 0.9% Normal Saline (100mL MB+) 100 ML 330 MG IV (09:27)
[2024-02-10] MEDS: Acetaminophen 650 MG/20 ML UDC PO (09:28)
[2024-02-10] MEDS: oxyCODONE 5 MG Tablet PO (09:28)
[2024-02-10] MEDS: Ondansetron 4 MG/2 ML Vial IV (09:30)
--- NOTE | 2024-02-10 10:05 | CASEMGMT ---
RN CM into pt room, pt mother at bedside. Pt mother states pt is in pain and the nurse is aware but that pt will be dc'd today and they are going to go to [facility] ER. Pt and mother deny any homegoing needs at this time.
== END 2024-02-10 11:40 | disposition home or self-care (01) | DRG 641 ==
LOC: ED 14:55 → MS3 15:10
PROVIDERS: Internal Medicine; Internal Medicine Gastroenterology; Admitting Provider Family Medicine; Emergency Provider Emergency Medicine; PCP Family Medicine; Visit Provider Internal Medicine
PROC: 0D20XUZ Change Feeding Device in Upper Intestinal Tract, External Approach (ICD-10-PCS; CPT 43260; principal; 2024-02-08 15:20)
PROC: 0DJ08ZZ Inspection of Upper Intestinal Tract, Via Natural or Artificial Opening Endoscopic (ICD-10-PCS; CPT 43235; 2024-02-08 15:20)
DX: R62.7 Adult failure to thrive (principal); E44.0 Moderate protein-calorie malnutrition; Q93.82 Williams syndrome; N13.2 Hydronephrosis with renal and ureteral calculous obstruction; F95.2 Tourette's disorder; Z93.1 Gastrostomy status; I10 Essential (primary) hypertension; K31.89 Other diseases of stomach and duodenum; K21.9 Gastro-esophageal reflux disease without esophagitis; F41.8 Other specified anxiety disorders; F71 Moderate intellectual disabilities; N28.89 Other specified disorders of kidney and ureter; R10.9 Unspecified abdominal pain; N28.1 Cyst of kidney, acquired; N32.89 Other specified disorders of bladder; Z68.24 Body mass index [BMI] 24.0-24.9, adult; R63.4 Abnormal weight loss; G89.29 Other chronic pain
CPT/HCPCS: 36415; 74177; 74328; 76000; 76705; 80053; 81001; 83605; 83690; 83735; 84100; 85025; 85610; 94667; 94668; 97161; 97165; 97802; 97803; 99252; 99284; J7030; J7120; Q9967; A4216; G0463; J2405